=== PATIENT | female | born 1955 | race Caucasian/White ===

== ENCOUNTER → 2017-09-25 07:54 | Outpatient (CLI) | payer OTHER, SELFPAY ==
--- NOTE | 2017-09-25 | DI.MG.S_ITS ---
BILATERAL DIGITAL SCREENING MAMMOGRAM 3D/2D WITH CAD: 09/25/2017 CLINICAL: Routine screening. Comparison is made to exams dated: 07/27/2016 mammogram, 07/25/2015 mammogram, and 07/23/2014 mammogram - [facility]. The tissue of both breasts is heterogeneously dense. This may lower the sensitivity of mammography. Current study was also evaluated with a Computer Aided Detection (CAD) system. No significant masses, calcifications, or other findings are seen in either breast. There has been no significant interval change. IMPRESSION: NEGATIVE There is no mammographic evidence of malignancy. A 1 year screening mammogram is recommended. This exam was interpreted at Station ID: [id number]. NOTE: For mammograms, a report in lay terms will be sent to the patient. Approximately 15% of breast malignancies will not be visualized mammographically. In the management of a palpable breast mass, a negative mammogram must not discourage biopsy of a clinically suspicious lesion. Electronically Signed By: Guillermo maier/rayshawn:09/25/2017 16:40:56 letter sent: Normal Exam ACR BI-RADS Category 1: Negative 3341F
== END ==
PROVIDERS: Family Provider Family Medicine; PCP Family Medicine; Visit Provider Family Medicine
DX: Z12.31 Encounter for screening mammogram for malignant neoplasm of breast (principal)
CPT/HCPCS: 77063; 77067

== ENCOUNTER → 2018-01-08 07:22 | Outpatient (CLI) | payer OTHER, SELFPAY ==
[2018-01-08 07:56] LABS: Add Manual Diff / Slide Review NO; Basophils Percent Auto 0.7 % (0-2); Eosinophils Percent Auto 2.1 % (2-4); Hematocrit 42.7 % (36-46); Hemoglobin 14.3 g/dL (12.0-16.0); Lymphocytes Percent Auto 34.2 % (25-40); Mean Corpuscular HGB Conc 33.4 % (30-36); Mean Corpuscular Hemoglobin 28.5 PG (26-34); Mean Corpuscular Volume 85.3 fL (80-100); Monocytes Percent Auto 8.4 % (3-14); Neutrophils Absolute Auto 3100 /uL (3000-5900); Neutrophils Percent Auto 54.6 % (50-75); Platelet Count 228 X10^3/uL (150-400); Red Cell Distribution Width 13.3 % (11.6-14.8); White Blood Cell Count 5.6 X10^3/uL (4.5-11.0)
[2018-01-08 08:06] LABS: Alanine Aminotransferase 34 IU/L (9-52); Albumin 4.3 g/dL (3.5-5.0); Albumin Globulin Ratio 1.3 (1.0-2.8); Alkaline Phosphatase 88 U/L (38-126); Aspartate Aminotransferase 25 IU/L (14-36); BUN Creatinine Ratio 21.3 (6-22); Bilirubin Total 0.6 mg/dL (0.2-1.3); Blood Urea Nitrogen 17 mg/dL (7-17); Calcium 9.4 mg/dL (8.4-10.2); Carbon Dioxide 26 mmol/L (22-32); Chloride 106 mmol/L (98-107); Cholesterol 216 mg/dL (140-199); Estimated Glomerular Filt Rate > 60.0 mL/min (>60); Globulin 3.2 g/dL (1.7-4.1); Glucose 109 mg/dL (80-110); HDL Cholesterol 42 mg/dL (40-60); HEMOLYSIS < 15 (0-50); LDL Cholesterol Calculated 131 mg/dL (<100); Potassium 4.1 mmol/L (3.4-5.1); Sodium 146 mmol/L (137-145); Total Protein 7.5 g/dL (6.3-8.2); Triglycerides 214 mg/dL (35-150)
== END ==
PROVIDERS: Family Provider Family Medicine; PCP Family Medicine
DX: Z13.228 Encounter for screening for other metabolic disorders (principal); Z13.220 Encounter for screening for lipoid disorders; Z13.0 Encounter for screening for diseases of the blood and blood-forming organs and certain disorders involving the immune mechanism; Z13.29 Encounter for screening for other suspected endocrine disorder
CPT/HCPCS: 36415; 80053; 80061; 84443; 85025

== ENCOUNTER → 2018-06-13 10:38 | Outpatient (CLI) | payer OTHER, SELFPAY ==
--- NOTE | 2018-06-13 | DI.RAD.S_ITS ---
PROCEDURE: XR KNEE LT 1TO2V INDICATIONS: LUMBAR/L KNEE PAIN TECHNIQUE: 2 views of the knee were acquired. COMPARISON: None. FINDINGS: Bones: No fractures or dislocations. No suspicious bony lesions. Scattered degenerative subchondral sclerosis and spurring. Joint spaces are grossly preserved. Prominent spurring of the superior pole of the patella Soft tissues: No joint effusion. No suspicious soft tissue calcifications. IMPRESSION: Mild left knee joint degeneration. Dictated by: Darrel Olsen M.D. on 06/13/2018 at 11:42 Approved by: Darrel Olsen M.D. on 06/13/2018 at 11:44
--- NOTE | 2018-06-13 | DI.RAD.S_ITS ---
PROCEDURE: XR LUMBAR SPINE 2-3V INDICATIONS: LUMBAR/L KNEE PAIN TECHNIQUE: 3 views of the lumbar spine were acquired. COMPARISON: [facility], , L-SPINE 2-3 VIEWS, 11/02/2014, 10:55. FINDINGS: Bones: No fracture or focal osseous destruction. Moderate to severe narrowing of the L3-L4, L4-L5 L5-S1 disc spaces. There is also mild to moderate diffuse narrowing of the remaining lower thoracic and upper lumbar disc spaces. Straightening of the normal lordosis. Bilateral hip degeneration. Prominent right-sided paravertebral osteophyte formation as before the level of L4-L5 Soft tissues: Overlying bowel gas pattern is normal. No suspicious soft tissue calcifications. IMPRESSION: Diffuse thoracic and lumbar spondylosis and facet arthropathy, mild progressed since 11/02/14 (At L4-L5 and L5-S1) Dictated by: Darrel Olsen M.D. on 06/13/2018 at 11:40 Approved by: Darrel Olsen M.D. on 06/13/2018 at 11:42
== END ==
PROVIDERS: Family Provider Family Medicine; PCP Family Medicine; Visit Provider Chiropractor
DX: M54.5 Low back pain (principal); M25.562 Pain in left knee; M17.12 Unilateral primary osteoarthritis, left knee; M47.814 Spondylosis without myelopathy or radiculopathy, thoracic region; M47.816 Spondylosis without myelopathy or radiculopathy, lumbar region
CPT/HCPCS: 72100; 73560

== ENCOUNTER → 2018-11-12 15:10 | Outpatient (CLI) | payer OTHER, SELFPAY ==
--- NOTE | 2018-11-12 | DI.MG.S_ITS ---
BILATERAL DIGITAL SCREENING MAMMOGRAM 3D/2D WITH CAD: 11/12/2018 CLINICAL: Routine screening. Comparison is made to exams dated: 09/25/2017 mammogram, 07/27/2016 mammogram, and 07/25/2015 mammogram - [facility]. The tissue of both breasts is heterogeneously dense. This may lower the sensitivity of mammography. Current study was also evaluated with a Computer Aided Detection (CAD) system. There are benign post operative findings in the right breast. No significant masses, calcifications, or other findings are seen in either breast. There has been no significant interval change. IMPRESSION: There is no mammographic evidence of malignancy. A 1 year screening mammogram is recommended. This exam was interpreted at Station ID: [id number]. NOTE: For mammograms, a report in lay terms will be sent to the patient. Approximately 15% of breast malignancies will not be visualized mammographically. In the management of a palpable breast mass, a negative mammogram must not discourage biopsy of a clinically suspicious lesion. Electronically Signed By: Fredy myers/rayshawn:11/12/2018 18:05:52 letter sent: Normal Exam ACR BI-RADS Category 2: Benign Finding(s) 3342F
== END ==
PROVIDERS: PCP Family Medicine; Visit Provider Family Medicine
DX: Z12.31 Encounter for screening mammogram for malignant neoplasm of breast (principal)
CPT/HCPCS: 77063; 77067

== ENCOUNTER → 2018-12-03 12:34 | Outpatient (CLI) | payer OTHER, SELFPAY ==
[2018-12-03 14:04] LABS: Free T4, Direct Thyroxine 0.79 ng/dL (0.78-2.19)
[2018-12-03 14:18] LABS: Thyroid Stimulating Hormone 3.73 uIU/mL (0.47-4.68)
== END ==
PROVIDERS: PCP Family Medicine; Visit Provider Family Medicine
DX: E03.9 Hypothyroidism, unspecified (principal)
CPT/HCPCS: 36415; 84439; 84443

== ENCOUNTER → 2019-08-14 07:23 | Outpatient (CLI) | payer OTHER, SELFPAY | PROVIDERS: PCP Family Medicine; Referring Provider Family Medicine; Visit Provider Family Medicine | DX: E03.9 Hypothyroidism, unspecified (principal) | CPT/HCPCS: 84443 ==

== ENCOUNTER → 2019-11-23 17:06 | Outpatient (CLI) | payer OTHER, SELFPAY ==
--- NOTE | 2019-11-23 17:08 | DI.MG.S_ITS ---
BILATERAL DIGITAL SCREENING MAMMOGRAM 3D/2D WITH CAD: 11/23/2019 CLINICAL: Routine screening. Comparison is made to exams dated: 11/12/2018 mammogram, 09/25/2017 mammogram, and 07/27/2016 mammogram - [facility]. The tissue of both breasts is heterogeneously dense. This may lower the sensitivity of mammography. Current study was also evaluated with a Computer Aided Detection (CAD) system. There are benign post operative findings in the right breast. No significant masses, calcifications, or other findings are seen in either breast. There has been no significant interval change. IMPRESSION: BENIGN There is no mammographic evidence of malignancy. A 1 year screening mammogram is recommended. This exam was interpreted at Station ID: [id number]. NOTE: For mammograms, a report in lay terms will be sent to the patient. Approximately 15% of breast malignancies will not be visualized mammographically. In the management of a palpable breast mass, a negative mammogram must not discourage biopsy of a clinically suspicious lesion. Electronically Signed By: Michelle cedillo/rayshawn:11/24/2019 08:45:30 letter sent: Normal Exam ACR BI-RADS Category 2: Benign Finding(s) 3342F
== END ==
PROVIDERS: PCP Family Medicine; Referring Provider Family Medicine; Visit Provider Family Medicine
DX: Z12.31 Encounter for screening mammogram for malignant neoplasm of breast (principal)
CPT/HCPCS: 77063; 77067

== ENCOUNTER → 2019-12-31 13:12 | Outpatient (CLI) | payer OTHER, SELFPAY ==
[2019-12-31 15:25] LABS: Add Manual Diff / Slide Review NO; Basophils Absolute Auto 0 /uL (0-100); Basophils Percent Auto 0.5 % (0-2); Eosinophils Absolute Auto 200 /uL (0-450); Eosinophils Percent Auto 2.3 % (2-4); Hematocrit 43.2 % (36-46); Hemoglobin 14.1 g/dL (12.0-16.0); Lymphocytes Absolute Auto 2400 /uL (1100-4500); Lymphocytes Percent Auto 35.2 % (25-40); Mean Corpuscular HGB Conc 32.7 % (30-36); Mean Corpuscular Hemoglobin 28.4 PG (26-34); Monocytes Absolute Auto 500 /uL (0-900); Neutrophils Absolute Auto 3700 /uL (1500-7000); Platelet Count 250 X10^3/uL (150-400); Red Blood Cell Count 4.97 X10^6/uL (4.0-5.2); Red Cell Distribution Width 13.5 % (11.6-14.8); White Blood Cell Count 6.9 X10^3/uL (4.5-11.0)
[2019-12-31 15:44] LABS: Alanine Aminotransferase 18 IU/L (<35); Albumin 4.4 g/dL (3.5-5.0); Albumin Globulin Ratio 1.3 (1.0-2.8); Alkaline Phosphatase 83 U/L (38-126); Aspartate Aminotransferase 26 IU/L (14-36); BUN Creatinine Ratio 22.7 (6-22); Bilirubin Total 0.6 mg/dL (0.2-1.3); Blood Urea Nitrogen 20 mg/dL (7-17); Calcium 9.4 mg/dL (8.4-10.2); Carbon Dioxide 30 mmol/L (22-32); Chloride 104 mmol/L (98-107); Estimated Glomerular Filt Rate > 60.0 mL/min (>60); Globulin 3.5 g/dL (1.7-4.1); Glucose 83 mg/dL (80-110); HEMOLYSIS < 15 (0-50); Potassium 3.8 mmol/L (3.4-5.1); Sodium 140 mmol/L (137-145); Total Protein 7.9 g/dL (6.3-8.2)
[2019-12-31 16:19] LABS: Thyroid Stimulating Hormone 1.57 uIU/mL (0.47-4.68)
== END ==
PROVIDERS: PCP Family Medicine; Referring Provider Internal Medicine Cardiovascular Disease; Visit Provider Internal Medicine Cardiovascular Disease
DX: I48.0 Paroxysmal atrial fibrillation (principal); E03.9 Hypothyroidism, unspecified
CPT/HCPCS: 36415; 80053; 84443; 85025

== ENCOUNTER → 2020-05-03 13:01 | Outpatient (CLI) | payer MEDICARE, SELFPAY ==
[2020-05-03] MEDS: COVID-19 VACC #1, MRNA(MOD) 100 MCG/0.5 ML VIAL IM (13:15)
== END ==
PROVIDERS: PCP Family Medicine; Visit Provider Internal Medicine
DX: Z23 Encounter for immunization (principal)
CPT/HCPCS: 0011A; 91301

== ENCOUNTER → 2020-05-27 15:14 | Outpatient (CLI) | payer MEDICARE, SELFPAY ==
[2020-05-27] MEDS: COVID-19 VACC #2, MRNA(MOD) 100 MCG/0.5 ML VIAL IM (15:21)
== END ==
PROVIDERS: PCP Family Medicine; Visit Provider Internal Medicine
DX: Z23 Encounter for immunization (principal)
CPT/HCPCS: 0012A; 91301

== ENCOUNTER → 2020-06-08 09:17 | Outpatient (CLI) | payer MEDICARE, SELFPAY ==
[2020-06-08 10:19] LABS: COVID19 -Nasal RAPID Negative (Negative)
== END ==
PROVIDERS: PCP Family Medicine; Visit Provider Surgery
DX: Z20.822 Contact with and (suspected) exposure to COVID-19 (principal)
CPT/HCPCS: 87635; C9803

== ENCOUNTER 2020-06-09 07:29 | Day surgery (SDC) | payer MEDICARE, SELFPAY ==
--- NOTE | 2020-06-09 | PATH_ITS ---
[facility] Accession Number: [id number] . 01 Material submitted: . cecum - CECUM POLYP . 02 Diagnosis: Cecal Polyp: Multiple (approximately eight) portions of tubular adenoma. MRV 06/15/2020 1222 Local . 02 Electronically signed: . Odalis Dickinson MD, Pathologist NPI- [id number] . 01 Gross description: . CECUM POLYP: Received in formalin are multiple fragment(s) of clayton, soft tissue measuring 0.1 x 0.1 x 0.1 cm to 0.5 x 0.4 x 0.4 cm submitted entirely in 1 cassette(s) /NHUNG 06/10/2020 2204 Local . 02 Pathologist provided ICD-10: Z12.11, K63.5 . 02 CPT . 499149 Performed at: 01 [facility] [address] [id number] MD Guillermo Han MD Phone: [phone] Performed at: 02 [facility] [address] [address] [place], [place] [id number] MD Siri Hong MD Phone: [phone]
[2020-06-09 07:53] VITALS: BP 116/77; PULSE 71; RESP 16; TEMP 36.6; O2SAT 98; BMI 34.7
[2020-06-09] MEDS: SODIUM CHLORIDE 0.9% 1,000 ML 200 ML IV (07:53)
--- NOTE | 2020-06-09 08:14 | PM.HP.1 ---
History of Present Illness History of Present Illness Date Patient Seen: 06/09/20 Time Patient Seen: 08:14 Chief complaint: SCREENING COLONOSCOPY Narrative: This is a 65-year-old woman with obesity, atrial fibrillation, and anticoagulated on Eliquis. She last took her Eliquis yesterday morning. She had a colonoscopy 13 years ago, which she reports was normal. She denies any new symptoms of melena, hematochezia, or unexplained weight loss. She occasionally has some abdominal pain after eating in the morning, which is associated with diarrhea. She otherwise does not have chronic diarrhea on a daily basis. ROS Thirteen system review is otherwise negative other than as mentioned below and in HPI. PE: GENERAL: Well groomed and cooperative. Obese. Appears stated age. Answers questions promptly and appropriately. Vital signs noted. HENT: Normocephalic, atraumatic. Hearing intact. EYES: Conjunctiva pink, sclera white, no periorbital swelling. CARDIOVASCULAR: Regular rate. No pedal edema. RESPIRATORY: Non-tachypneic, breathing comfortably on room air. GASTROINTESTINAL: Abdomen soft and non-distended GENITALURINARY: No flank tenderness. MUSCULOSKELETAL: Equal tone and mass bilaterally. SKIN: Warm, dry, soft, appropriate color for ethnicity. No other lesions, rashes, or wounds. NEURO: Alert and Oriented X 3. No gross sensory deficits, or cognitive issues. PSYCH: Appropriate affect and mood. Patient History Surgical History Status post cholecystectomy Family & Social History Family History Grandfather Heart disease Grandmother Heart disease Mother Cancer Social History: household members spouse Tobacco & Substance use: Smoking Status Never smoker alcohol intake current alcohol intake frequency a few times a month Substance Use Type does not use Meds Home Medications and Allergies Home Medications Medication Instructions Recorded Confirmed Type Levoxyl 100 mcg tablet 100 mcg PO DAILY #90 tab NS 12/21/19 06/09/20 Rx apixaban 5 mg tablet 5 mg PO BID 03/03/20 06/09/20 History flecainide 50 mg tablet 50 mg PO Q12H 03/03/20 06/09/20 History metoprolol succinate 25 mg 25 mg PO QDAY #0 03/03/20 06/09/20 History tablet,extended release 24 hr phenazopyridine 100 mg tablet 100 mg PO QIDP PRN #15 tab 03/03/20 06/09/20 Rx Vitamin D3 4,000 units PO DAILY 06/09/20 06/09/20 History lactobacillus combination no.4 3,000 mmu cells PO DAILY 06/09/20 06/09/20 History [Probiotic] loratadine [Claritin] 10 mg PO DAILY 06/09/20 06/09/20 History Allergies Allergy/AdvReac Type Severity Reaction Status Date / Time No Known Drug Allergies Allergy Verified 03/03/20 15:07 Exam Vital Signs (past 8 hours): - 06/09/20 07:53 Temperature 97.9 F Pulse Rate 71 Respiratory Rate 16 Blood Pressure 116/77 Pulse Oximetry 98 Oxygen Delivery Method Room Air Oxygen Flow Rate 0 Assessment & Plan Assessment and plan (1) At average risk for colon cancer: Status: Acute (2) Anticoagulated by anticoagulation treatment: Status: Acute (3) Obesity (BMI 30.0-34.9): Status: Acute Assessment & Plan narrative: Risks and benefits of screening colonoscopy and possible polypectomy were discussed with the patient including risk of bleeding, perforation, need for additional procedures, risks of anesthesia. The patient desires to proceed with the colonoscopy procedure. COVID-19 COVID-19 status: Negative Result date/Date tested (Pos, Neg/Pending): 06/08/20 Time Spent With Patient Time with patient: 15-24 minutes Quality VTE Deep Vein Thrombosis/Pulmonary Embolism Present on Admission: No
--- NOTE | 2020-06-09 08:16 | PM.OP.ENDO ---
Operative Date/Time/Diagnoses Date of procedure: 06/09/20 Time of procedure: 08:16 Pre-op diagnosis: Average risk for colon cancer, due for screening colonoscopy Post-op diagnosis: other (Adenomatous appearing polyp in the cecum) Procedure & Clinicians Study performed: Colonoscopy Procedural sedation performed by the endoscopist Polypectomy with hot snare Same procedure as scheduled: Yes Indications: Average risk for colon cancer, due for screening colonoscopy Surgeon: Tiffanie Bradford Procedure Notes SCOAP/Timeout: Performed Procedure in detail: The patient was brought to the room and placed in left lateral decubitus position with all bony prominences padded. A time-out was performed and then the patient was given procedural sedation starting with [] mg of Versed and[1] mcg of fentanyl. An additional 1 mg of Versed and 50 micro g of fentanyl were given during the procedure. Vitals were monitored throughout the procedure and remained stable. Once adequately sedated, the procedure was begun. A rectal exam was performed revealing [no abnormalitie]. The colonoscope was then introduced to the rectum and advanced to the cecum in the usual fashion[]The cecum was identified by the appendiceal orifice, the mucosal tri-fold, and the ileocecal valve. A 2 cm polyp was found in the cecum. It was removed with hot snare with no bleeding seen after removal. The scope was then retracted while rotating side to side and examining each mucosal fold. ] At the conclusion of the procedure retroflexion was performed and[small grade 1-2 internal hemorrhoids without stigmata of bleeding were see]. The scope was then withdrawn from the rectum the procedure was concluded. The patient tolerated the procedure well and was transferred to the PACU in stable condition Scope withdrawal time: 8 Sedation minutes: 20 Findings: polyp Specimen(s): other (Cecal polyp) Complications: none Impression: One moderate-sized adenomatous appearing polyp removed from the see Post-procedure Recommendations: Colonscopy in 5 years (Depending on pathology results) Follow up: as needed Disposition: PACU
[2020-06-09] MEDS: fentaNYL 250 MCG/5 ML INJ IV (08:26)
[2020-06-09] MEDS: MIDAZOLAM 5 MG/5 ML VIAL IV (08:26)
[2020-06-09 08:44] VITALS: BP 129/64; PULSE 62; RESP 18; TEMP 36.6; O2SAT 99
[2020-06-09 08:49] VITALS: BP 92/47; PULSE 62; RESP 19; O2SAT 96
[2020-06-09 08:53] VITALS: BP 91/60; PULSE 60; RESP 18; TEMP 36.6; O2SAT 98
[2020-06-09 08:58] VITALS: BP 101/59; PULSE 62; RESP 14; O2SAT 98
[2020-06-09 09:02] VITALS: BP 98/62; PULSE 61; RESP 15; O2SAT 98
--- NOTE | 2020-06-09 09:05 | SUR.PHASEI ---
Stable pacu stay.
--- NOTE | 2020-06-09 10:02 | SUR.PHASEII ---
Late entry: reported to Ana BOWMAN initially, assumed care back, pt dressed and ready to go, belly soft, no discomfort, steady when up no dizziness. No questions on d/c instructions. Pt left unit in stable condition.
--- NOTE | 2020-06-09 10:07 | SUR.PHASEII ---
Addendum: Verified with Dr. Bradford- pt to resume Jud rubio pt aware.
== END 2020-06-09 09:20 | disposition home or self-care (01) ==
LOC: ENDO 07:30
PROVIDERS: PCP Family Medicine; Referring Provider Family Medicine; Visit Provider Surgery
PROC: 0DJD8ZZ Inspection of Lower Intestinal Tract, Via Natural or Artificial Opening Endoscopic (ICD-10-PCS; CPT 45378; principal; 2020-06-09 08:30)
DX: Z12.11 Encounter for screening for malignant neoplasm of colon (principal); Z79.01 Long term (current) use of anticoagulants; E66.9 Obesity, unspecified; I48.91 Unspecified atrial fibrillation; K64.0 First degree hemorrhoids; D12.0 Benign neoplasm of cecum
CPT/HCPCS: 45380; 99152; J2250; J3010

== ENCOUNTER → 2020-06-11 11:09 | Outpatient (CLI) | payer MEDICARE, SELFPAY ==
--- NOTE | 2020-06-11 11:11 | DI.MRI.S_ITS ---
PROCEDURE: MR ANKLE RT WO CON INDICATIONS: Achilles tendinitis, right leg TECHNIQUE: Noncontrast sagittal T1 spin echo and T2 fast spin echo with fat saturation, axial proton density fast spin echo and T2 fast spin echo with fat saturation, coronal T1 spin echo and T2 fast spin echo with fat saturation through the ankle/hindfoot. COMPARISON: None. FINDINGS: Image quality: Excellent. Bones and joints: No bone marrow contusions or fractures. No hindfoot coalitions. No osteochondral injuries of the talar dome. Well-defined plantar and dorsal calcaneal enthesophytes are seen. Subcortical cyst formation involving posterior calcaneus at distal Achilles tendon insertion is seen. Trace amount of tibiotalar and subtalar joint fluid is noted. Mild soft tissue swelling around ankle joint is seen. Medial structures: The posterior tibialis, flexor digitorum longus, and flexor hallucis longus tendons are intact. The posterior tibial neurovascular bundle appears normal within the tarsal tunnel, without extrinsic mass effect. The deep layer (anterior and posterior tibiotalar ligaments) and superficial layer (tibionavicular, tibiospring, and tibiocalcaneal ligaments) of the deltoid ligament appear normal. The spring ligament components (superomedial calcaneonavicular, medioplantar oblique calcaneonavicular, and inferoplantar longitudinal ligaments) are intact. Lateral structures: The anterior talofibular, calcaneofibular, and posterior talofibular ligaments appear intact. More superiorly, the anterior and posterior tibiofibular ligaments appear intact, as is the intermalleolar ligament. The tibiofibular syndesmosis is normal in width at 2 mm or less. The peroneus longus and brevis tendons demonstrate normal location and morphology. Adjacent bony peroneal tubercle and retrotrochlear prominence are normal in size. The sinus tarsi demonstrates normal fatty signal, without edema, fibrosis, or cyst formation. Visualized sinus tarsi components (cervical ligament, interosseous talocalcaneal ligament, roots of the inferior extensor retinaculum) appear normal. The calcaneonavicular and calcaneocuboid components of the bifurcate ligament appear intact. The dorsal calcaneocuboid ligament appears intact. Anterior structures: The tibialis anterior, extensor hallucis longus, and extensor digitorum longus tendons appear intact. The dorsal talonavicular ligament appears intact. Posterior and plantar structures: Thickened Achilles tendon with heterogeneous intrasubstance T2 hyperintense signal and surrounding soft tissue edema at its insertion of posterior calcaneus is seen. No full-thickness Achilles tendon rupture. Medial and lateral bands of the plantar fascia are of normal thickness. No abductor digiti quinti muscle atrophy to suggest Sharp neuropathy. IMPRESSION: 1. Well-defined plantar and dorsal calcaneal enthesophytes. No fracture or dislocation. Small amount of joint fluid. 2. Tendinosis and low to moderate grade intrasubstance partial-thickness tear involving distal 4.6 centimeters segment of Achilles tendon extending to its insertion of posterior calcaneus. No full-thickness Achilles tendon rupture. Plantar aponeurosis is intact. 3. Mild ankle soft tissue swelling. Extensor, flexor, and peroneus tendons are intact. Medial and lateral ankle ligaments are grossly intact. Dictated by: Damir Horvath M.D. on 06/13/2020 at 8:22 Approved by: Damir Horvath M.D. on 06/13/2020 at 8:26
== END ==
PROVIDERS: PCP Family Medicine; Referring Provider Orthopaedic Surgery Foot and Ankle Surgery; Visit Provider Orthopaedic Surgery Foot and Ankle Surgery
DX: M76.61 Achilles tendinitis, right leg (principal); S86.011A Strain of right Achilles tendon, initial encounter; M77.31 Calcaneal spur, right foot; M79.89 Other specified soft tissue disorders
CPT/HCPCS: 73721

== ENCOUNTER → 2020-10-12 09:43 | Outpatient (CLI) | payer MEDICARE, SELFPAY ==
[2020-10-12 13:01] LABS: COVID19 -Nasal RAPID Negative (Negative)
== END ==
PROVIDERS: PCP Family Medicine; Visit Provider Nurse Practitioner
DX: Z01.812 Encounter for preprocedural laboratory examination (principal); Z20.822 Contact with and (suspected) exposure to COVID-19
CPT/HCPCS: 87635; C9803

== ENCOUNTER 2020-10-14 06:10 | Day surgery (SDC) | payer MEDICARE, SELFPAY ==
[2020-10-13 10:29] VITALS: BMI 34.7
[2020-10-14] MEDS: LACTATED RINGERS 1,000 ML 42 ML IV (06:51)
[2020-10-14 07:00] VITALS: BP 117/74; PULSE 67; RESP 15; TEMP 36.6; O2SAT 98; BMI 34.7
--- NOTE | 2020-10-14 07:34 | PM.PREOP ---
Pre-operative Note COVID-19 COVID-19 status: Negative Interval Note History & Physical reviewed/Exam performed by Physician: Yes Changes to H&P: No
--- NOTE | 2020-10-14 08:04 | P.OP_ITS ---
Operative Date/Time/Diagnoses Date of procedure: 10/14/20 Time of procedure: 08:30 Pre-op diagnosis: Insertional Achilles tendinitis right leg M76.61 BMI 34 adult z 68.34 Gastroc contracture M62.89 Post-op diagnosis: same Procedure & Clinicians Procedure: 1. Repair Achilles tendon secondary right CPT 88557 2. FHL transfer CPT code 99219 3. Rashid excision CPT code code 50112 4. Ronda gastroc recession CPT code 35328 Same procedure as scheduled: Yes Indications: The patient is a 65-year-old female with a history of intractable insertional Achilles tendinitis and tendinopathy. She has failed conservative treatment with stretching shoe modifications activity modifications and anti- inflammatories. She also has a gastroc contracture. She has significant tendinosis on MRI and has been indicated for insertional Achilles tendon repair with Rashid and and the 0 fight resection, flexor hallucis longus transfer and a gastroc recession. The risks and benefits of the procedure have been discussed with the patient even opportunity to ask questions. The risks of surgery include but are not limited to infection, malunion, nonunion, persistence of pain, damage to nerves and blood vessels, posttraumatic arthritis, DVT, PE, cardiopulmonary complications and . The patient expressed a thorough understanding of the risks and benefits of surgery and has elected to proceed. Consent was signed in the office. Surgeon: Shannan Alcantara Click Yes if Unassisted: Yes Anesthesia Type: General and Peripheral nerve block Operative Notes Findings: Examination on the table demonstrated 0? dorsiflexion with the knee extended 15? with the knee bent indicating gastroc contracture. Intraoperative findings included Thickened Achilles tendon at the insertion with intrasubstance tendinosis. Large Enthesophyte and prominent Rashid deformity. Closure Type: primary Specimen(s): none sent Prosthetic devices, grafts, tissues, transplants, or devices: Arthrex SpeedBridge kit for insertional Achilles tendon repair Arthrex 6.25 biotenodesis screw for FHL transfer Estimated Blood Loss (mL): 15 Tourniquet time (min): 76 Procedure in detail: The patient was seen in the preoperative area and the site of surgery was marked, informed consent was confirmed, final questions were answered. The patient was then brought to the block room by the anesthesia team and a regional block was placed for postoperative pain control. Patient was then brought to the operating room. General endotracheal anesthesia was obtained. Tourniquet was placed and well-padded on the upper aspect of the right thigh. Patient was then positioned into the prone position on the operative table. All bony prominences were well padded. An SCD was placed on the non operative leg. The operative leg was then prepped and draped in the standard sterile fashion. A formal time-out procedure was performed confirming the patient, side, site of surgery, allergies and presence of informed consent and administration of appropriate preoperative antibiotics. All were in agreement. Implants were available and in the room. A midline incision over the distal Achilles tendon insertion and heel was drawn. Exsanguination with the Esmarch was performed and then the tourniquet was elevated to 250 mm of mercury and stayed there for 76 minutes. A central midline tendon splitting approach was performed. Full-thickness flaps were developed. The tendon was detached from the calcaneus into medial and lateral limbs and each tendon limb was noted to have moderate fibrosis in the distal 4 cm. The far lateral and medial edges of the tendon were left intact to recreate the footprint. Fibrosis of the tendon was sharply excised with a 15 blade. This did consist of 50% of the bulk of the tendon so it was decided that an FHL transfer would be needed. Rashid excision: There was a large posterior calcaneal enthesophyte and this was shelled out and excised. Additionally the paratenon layer was carefully isolated from the tendon for later repair. Utilizing careful no-touch technique to retract the tendon the Rashid deformity was exposed. This was resected using the saw and then finished with the osteotome under fluoroscopic guidance. The edges were chamfered and smoothed with the power rasp. A retrocalcaneal bursectomy was performed. FHL transfer: Flexor hallux longus was isolated at the medial ankle and id entified with the muscular belly transition into the tendon and with range of motion of the great toe. This was retracted out of the wound and then cut to length. The tendon was then sized to fit through a 6 mm hole therefore a 6.25 bio tenodesis screw was selected. The tendon was prepared with a FiberLoop. The location for the tendon transfer was isolated on the heel and a and drill tip pin was drilled through the calcaneus and out the plantar skin. This was overdrilled with a 4 mm drill bicortically and then with a [address] Tendon was taken through the eyelet of the drill pin and pulled out the bottom of the foot and into the tunnel. Next maintaining appropriate resting tension the FHL transfer was fixed into the calcaneus with the 6.25 bio tenodesis screw. Then attention was returned to the Achilles repair. The Arthrex Speed Bridge system was opened. The 2 proximal 4.75 anchors were placed into the calcaneus approximately 1 cm proximal to the Achilles far distal insertion. The FiberTape limbs were taken out from deep to superficial through the tendon and the additional FiberWire sutures were also brought up through the tendon for additional points of fixation. This same procedure was performed for both the medial and lateral limbs. Once this was completed the FiberWire horizontal mattress style suture was tied down to establish the tendon tension and a spot weld. Following this the site of the distal row swivel locks was determined and approximately 1 cm distal from the proximal row just distal to the tendon insertion. This was marked out on the calcaneus drilled and then tapped in the standard fashion. One blue and 1 white limb from each proximal anchor were threaded through the SwiveLock and fixed distally. This was measured and then marked for tension in the standard fashion placing the peek tip at the hole and marking at the suture according to the black line dg. This reestablished the footprint with excellent compression and tension. The wound was irrigated. 0 Vicryl was used to repair the central tendon split. The repair was noted to have excellent tension and reapproximation without any prominent edges or sutures. Next attention was turned to the gastroc lengthening. Gastroc recession: 4-5 cm incision longitudinal measured about 13-14 cm above the heel was taken down through the skin subcutaneous tissues. The neurovascular bundle was identified and protected. Dissection down through the fascia and to the gastroc fascia was identified. Gastroc soleus junction was identified and the gastroc fascia was released creating a 2 cm diastasis with a dorsiflexion of ankle and allowing improved ankle range of motion. This was then irrigated and closed. The Ricardo test was intact. The wounds were irrigated thoroughly. The tourniquet was released and hemostasis achieved. The fascia and paratenon were closed with 3 0 PDS suture. The skin was closed subcutaneously with 4 0 Monocryl and then 3 O nylon in the skin. A bulky dressing and splint was applied and gravity equinus. A bulky Saini dressing material was used. Patient was woken from anesthesia and taken to recovery room in good condition. There w ere no immediate complications from this procedure. All counts were correct. Complications: none Post-operative Condition: stable Disposition: PACU Plan for aftercare: Nonweightbearing right lower extremity. Elevate above the heart level as much as possible. Dressings will stay in place patient will follow-up in 2 weeks. Sutures remain in place a minimum of 2 weeks but can stay longer if needed. Once the incision is healed well will be moved into a boot with heel left. Discussed if needs additional time healing casting can also be used during that time. She will restart her Eliquis on postoperative day 2
[2020-10-14] MEDS: CEFAZOLIN 1 GM VIAL 2 GM IV (08:19)
--- NOTE | 2020-10-14 08:33 | SUR.OPER ---
Prone on padded OR bed, head in foam head support, gel chest rolls, gel pad under knees, blankets stacked under lower legs, toes free of pressure, arms secured on padded arm boards at <90 degrees abduction. Safety belt at waist.left leg secured to table with tape over calf, right leg draped free
[2020-10-14] MEDS: EPINEPHrine 1 MG/ML SUBCUT (09:00)
--- NOTE | 2020-10-14 09:28 | P.PCN_ITS ---
Procedures Date/Time Date of procedure: 10/14/20 Time of procedure: 07:45 General Procedure description: Ultrasound guided popliteal sciatic nerve block for post op pain control after right Achilles tendon surgery by Dr. Alcantara. Risk and b enefits of procedure discussed with patient. ASA monitoring applied to patient. Oxygen given via nasal cannula. 2 mg Versed given for procedural sedation. Skin site was prepped with chlorhexidine and allowed to fully dry. Sterile gloves, mask, hat and probe cover were used to maintain sterility. 2% lidocaine and 30ga needle was used to make a small skin wheal at needle insertion site. Under ultrasound guidance, a 21ga 100mm Pajunk needle was directed near the division of the sciatic nerve into tibial and peroneal nerve in the popliteal fossa (lateral approach). Patient reported no parasthesias. After negative aspiration, 20 mL 0.5% ropivicaine and 10mg dexamethasone were injected around sciatic nerve. Patient tolerated procedure well.
[2020-10-14 10:28] VITALS: BP 122/66; PULSE 62; RESP 14; TEMP 36.2; O2SAT 97
[2020-10-14 10:33] VITALS: BP 108/65; PULSE 59; RESP 10; TEMP 36.1; O2SAT 97
[2020-10-14 10:38] VITALS: BP 120/38; PULSE 56; RESP 13; TEMP 36; O2SAT 99
[2020-10-14 10:44] VITALS: BP 111/58; PULSE 57; RESP 13; TEMP 36.1; O2SAT 100
[2020-10-14 11:00] VITALS: BP 110/74; PULSE 55; TEMP 36.1; O2SAT 97
== END 2020-10-14 11:25 | disposition home or self-care (01) ==
PROVIDERS: PCP Family Medicine; Referring Provider Orthopaedic Surgery Foot and Ankle Surgery; Visit Provider Orthopaedic Surgery Foot and Ankle Surgery
PROC: (CPT 27650; principal; 2020-10-14 07:45)
DX: M76.61 Achilles tendinitis, right leg (principal); M77.51 Other enthesopathy of right foot and ankle; M62.89 Other specified disorders of muscle; I48.91 Unspecified atrial fibrillation; G47.30 Sleep apnea, unspecified; E66.9 Obesity, unspecified; Z68.34 Body mass index [BMI] 34.0-34.9, adult; Z79.01 Long term (current) use of anticoagulants
CPT/HCPCS: 27654; 27691; 28100; 27687; J0171; J0690; J1100; J1885; J2250; J2405; J2704; J3010

== ENCOUNTER → 2021-01-11 09:04 | Outpatient (CLI) | payer MEDICARE, SELFPAY ==
--- NOTE | 2021-01-11 09:05 | DI.MG.S_ITS ---
BILATERAL DIGITAL SCREENING MAMMOGRAM 3D/2D WITH CAD: 01/11/2021 CLINICAL: Routine screening. Comparison is made to exams dated: 11/23/2019 mammogram, 11/12/2018 mammogram, and 09/25/2017 mammogram - [facility]. The tissue of both breasts is heterogeneously dense. This may lower the sensitivity of mammography. Current study was also evaluated with a Computer Aided Detection (CAD) system. There are benign post operative findings in the right breast. No significant masses, calcifications, or other findings are seen in either breast. There has been no significant interval change. IMPRESSION: BENIGN There is no mammographic evidence of malignancy. A 1 year screening mammogram is recommended. This exam was interpreted at Station ID: [id number]. NOTE: For mammograms, a report in lay terms will be sent to the patient. Approximately 15% of breast malignancies will not be visualized mammographically. In the management of a palpable breast mass, a negative mammogram must not discourage biopsy of a clinically suspicious lesion. Electronically Signed By: Cristiano butler/rayshawn:01/11/2021 10:55:11 letter sent: Normal Exam ACR BI-RADS Category 2: Benign Finding(s) 3342F
== END ==
PROVIDERS: PCP Family Medicine; Referring Provider Family Medicine; Visit Provider Family Medicine
DX: Z12.31 Encounter for screening mammogram for malignant neoplasm of breast (principal)
CPT/HCPCS: 77063; 77067

== ENCOUNTER 2021-02-18 12:31 | Emergency (ER) | payer MEDICARE, SELFPAY ==
[2021-02-18] VITALS (7 sets, daily range): BP systolic 131–154; BP diastolic 60–70; PULSE 56–69; RESP 14–27; TEMP 36.1; O2SAT 96–100; BMI 34.0
--- NOTE | 2021-02-18 12:43 | ED_ITS ---
HPI - Syncope General Chief Complaint: Syncope Stated Complaint: Syncope Time Seen by Provider: 02/18/21 12:43 Source: patient Mode of arrival: Wheelchair Limitations: no limitations History of Present Illness HPI narrative: This is a 65-year-old female who states that she woke up this morning was lying in bed felt fine rolled over and immediately felt like the room was spinning. She states she was nauseated but never vomited. She thought she might have some low blood sugars she ate some food which did help. She continued to have symptoms particularly when she would bend over or move her head. She bent over while getting changed and states she did pass out but had several waves of symptoms overcome her. She states she felt like she might pass out. She denies any headache, no vision changes, no chest pain or shortness of breath. She has had nausea intermittently in her symptoms, in waves it does seem to be related with movement particularly flexion at the neck or her head moving down words. No diarrhea constipation. No urinary symptoms. She has some longstanding right foot tingling and numbness after having an insertional Achilles tendon repair but has not had any new numbness, tingling or weakness. She does have a history of AFib, she checked her Apple watch her heart rate was in the 60s and she was in sinus rhythm according to her watch. She is on Eliquis twice daily, flecainide, metoprolol, Levoxyl and gabapentin. She does know her gabapentin was increased from once daily 300 mg and she has been taking it twice daily for the past 2 days. She has had ablation in 2017, cholecystectomy, Achilles repair, breast biopsy in a 5th metatarsal fracture repair. No allergies. No to bacco, alcohol or illicit. Dr. Cabral is her PCP Related Data Home Medications Medication Instructions Recorded Confirmed apixaban 5 mg tablet (Eliquis) 5 mg PO BID 03/03/20 10/14/20 flecainide 50 mg tablet 50 mg PO Q12H 03/03/20 10/14/20 metoprolol succinate 25 mg 25 mg PO QDAY #0 03/03/20 10/14/20 tablet,extended release 24 hr (Toprol XL) Vitamin D3 4,000 units PO DAILY 06/09/20 10/14/20 lactobacillus combination no.4 3 3,000 mmu cells PO DAILY 06/09/20 10/14/20 billion cell capsule (Probiotic) loratadine 10 mg tablet (Claritin) 10 mg PO DAILY 06/09/20 10/14/20 Previous Rx's Medication Instructions Recorded phenazopyridine 100 mg tablet 100 mg PO QIDP PRN #15 tab 03/03/20 oxycodone 5 mg tablet 5 - 10 mg PO Q4H PRN #42 tab 10/14/20 promethazine 12.5 mg tablet 6.25 mg PO QID PRN #7 tab 10/14/20 Levoxyl 100 mcg tablet 100 mcg PO DAILY #90 tab NS 12/19/20 (levothyroxine) meclizine 25 mg tablet 50 mg PO QID PRN #20 tab 02/18/21 Allergies Allergy/AdvReac Type Severity Reaction Status Date / Time No Known Drug Allergies Allergy Verified 02/18/21 12:47 Review of Systems Review of Systems ROS Unobtainable: All systems reviewed & are unremarkable except as noted in HPI and below Patient History Medical History Achilles tendinitis, right leg Back pain DJD (degenerative joint disease) Surgical History History of cardiac radiofrequency ablation History of open reduction and internal fixation (ORIF) procedure History of surgery Hx of breast biopsy Hx of removal of cyst Status post cholecystectomy Family History Grandfather Heart disease Grandmother Heart disease Mother Cancer Social History marital status: household members: spouse Smoking Status: Never smoker alcohol intake: current substance use type: does not use Smoking Status: Never smoker alcohol intake frequency: a few times a month Substance Use Type: does not use Exam Narrative Exam Narrative: GEN: well nourished, well appearing female, alert and oriented x 3, patient appears to be in mild distress. HEENT: Atraumatic, pupils are equal round reactive to light, extraocular movements are intact, positive for rotatory nystagmus with Lodgepole-Hallpike maneuver on the right, nares are clear, TMs are clear with no fluid, there is no conjunc tival pallor. Throat is clear without any exudates, erythema, tonsillar enlargement or uvular deviation HEART: Regular rate and rhythm without murmur, clicks, rubs. LUNGS:Lungs clear to auscultation, no wheezes, rales, crackles, chest moves symmetrically ABD:bowel sounds normal, soft, non-tender, no guarding, rebound, rigidity, no masses noted, no hepatosplenomegaly :No CVA tenderness MSCL: Non-tender, no muscle atrophy, muscles strength 5/5 upper and lower extremities, full range of motion NEURO:CN 2-12 intact, sensation intact decreased in right foot baseline per patient, finger nose finger test normal, heel tellez test normal Initial Vital Signs Initial Vital Signs: Vital Signs Temperature 97.0 F L 02/18/21 12:43 Pulse Rate 69 02/18/21 12:43 Respiratory Rate 15 02/18/21 12:43 Blood Pressure 154/70 H 02/18/21 12:43 Pulse Oximetry 100 02/18/21 12:43 Scores NIH Stroke Scale Level of Conciousness: Alert, keenly responsive Ask month/age: Answers both questions correctly. Open/close eyes, close hand: Performs both tasks correctly Best gaze horizontal: Normal Visual ambriz: No visual loss Facial palsy: Normal symetrical movement Left arm drift: No drift for full 10 sec Right arm drift: No drift for full 10 sec Left leg drift: No drift for full 5 sec Right leg drift: No drift for full 5 sec Limb ataxia: Absent Sensory on face/arms/legs: Normal, no sensory loss Best language: No aphasia, normal Dysarthria: Normal Extinction or inattention: No abnormality Total NIH Stroke scale score: 0 Course Orders Ordered: Discontinued Medications Meclizine HCl (Meclizine Hcl 12.5 Mg Tablet) 25 mg PO NOW ONE Stop: 02/18/21 13:43 Last Admin: 02/18/21 13:56 Dose: 25 mg Documented by: TRACY Vital Signs Vital signs: Vital Signs - 8 hr 02/18/21 12:43 02/18/21 12:45 02/18/21 13:00 Temperature 97.0 F L Pulse Rate 68 64 63 Respiratory Rate 24 14 24 Blood Pressure 154/70 H 154/70 H Pulse Oximetry 100 99 02/18/21 13:01 02/18/21 13:30 02/18/21 14:00 Temperature Pulse Rate 61 62 58 L Respiratory Rate 21 21 27 H Blood Pressure 147/68 H 151/70 H 141/70 H Pulse Oximetry 99 96 99 02/18/21 14:37 Temperature Pulse Rate 56 L Respiratory Rate 18 Blood Pressure 131/60 Pulse Oximetry 100 MDM - Syncope Lab Data Result diagrams: 02/18/21 13:00 02/18/21 13:00 Labs: Lab Results 02/18/21 02/18/21 02/18/21 Range/Units 13:00 13:00 13:00 WBC 7.1 (4.5-11.0) X10^3/uL RBC 5.04 (4.0-5.2) X10^6/uL Hgb 14.4 (12.0-16.0) g/dL Hct 42.6 (36-46) % MCV 84.6 (80-100) fL MCH 28.7 (26-34) PG MCHC 33.9 (30-36) % RDW 14.2 (11.6-14.8) % Plt Count 241 (150-400) X10^3/uL Neut % (Auto) 64.6 (50-75) % Lymph % (Auto) 24.2 L (25-40) % Edmonson % (Auto) 8.6 (3-14) % Eos % (Auto) 1.9 L (2-4) % Baso % (Auto) 0.7 (0-2) % Neut # (Auto) 4600 (9771-2407) /uL Lymph # (Auto) 1700 (1554-3451) /uL Edmonson # (Auto) 600 (0-900) /uL Eos # (Auto) 100 (0-450) /uL Baso # (Auto) 0 (0-100) /uL PT 15.0 H (10.1-12.7) SECONDS INR 1.3 (0.9-1.3) APTT 42 H (26.4-36.2) SECONDS Sodium 144 (137-145) mmol/L Potassium 4.0 (3.4-5.1) mmol/L Chloride 109 H (98-107) mmol/L Carbon Dioxide 27 (22-32) mmol/L BUN 13 (7-17) mg/dL Creatinine 0.73 (0.52-1.04) mg/dL Estimated GFR > 60.0 (>60) mL/min BUN/Creatinine Ratio 17.8 (6-22) Glucose 107 (80-110) mg/dL Calcium 9.8 (8.4-10.2) mg/dL Magnesium 2.2 (1.6-2.3) mg/dL Total Bilirubin 0.6 (0.2-1.3) mg/dL AST 32 (14-36) IU/L ALT 31 (<35) IU/L Alkaline Phosphatase 92 (38-126) U/L Total Creatine Kinase 21 L (30-135) U/L CK-MB (CK-2) TNP CK-MB (CK-2) Rel Index TNP Troponin I < 0.012 (0.01-0.034) ng/mL NT-Pro-B Natriuret Pep (<125) pg/mL Total Protein 8.4 H (6.3-8.2) g/dL Albumin 4.5 (3.5-5.0) g/dL Globulin 3.9 (1.7-4.1) g/dL Albumin/Globulin Ratio 1.2 (1.0-2.8) Lipase 93 (23-300) U/L SARS-CoV-2 (PCR) (Negative) 02/18/21 02/18/21 Range/Units 13:00 13:35 WBC (4.5-11.0) X10^3/uL RBC (4.0-5.2) X10^6/uL Hgb (12.0-16.0) g/dL Hct (36-46) % MCV (80-100) fL MCH (26-34) PG MCHC (30-36) % RDW (11.6-14.8) % Plt Count (150-400) X10^3/uL Neut % (Auto) (50-75) % Lymph % (Auto) (25-40) % Edmonson % (Auto) (3-14) % Eos % (Auto) (2-4) % Baso % (Auto) (0-2) % Neut # (Auto) (3268-5421) /uL Lymph # (Auto) (4965-7344) /uL Edmonson # (Auto) (0-900) /uL Eos # (Auto) (0-450) /uL Baso # (Auto) (0-100) /uL PT (10.1-12.7) SECONDS INR (0.9-1.3) APTT (26.4-36.2) SECONDS Sodium (137-145) mmol/L Potassium (3.4-5.1) mmol/L Chloride (98-107) mmol/L Carbon Dioxide (22-32) mmol/L BUN (7-17) mg/dL Creatinine (0.52-1.04) mg/dL Estimated GFR (>60) mL/min BUN/Creatinine Ratio (6-22) Glucose (80-110) mg/dL Calcium (8.4-10.2) mg/dL Magnesium (1.6-2.3) mg/dL Total Bilirubin (0.2-1.3) mg/dL AST (14-36) IU/L ALT (<35) IU/L Alkaline Phosphatase (38-126) U/L Total Creatine Kinase (30-135) U/L CK-MB (CK-2) CK-MB (CK-2) Rel Index Troponin I (0.01-0.034) ng/mL NT-Pro-B Natriuret Pep 185 H (<125) pg/mL Total Protein (6.3-8.2) g/dL Albumin (3.5-5.0) g/dL Globulin (1.7-4.1) g/dL Albumin/Globulin Ratio (1.0-2.8) Lipase (23-300) U/L SARS-CoV-2 (PCR) Negative (Negative) Imaging Data Chest x-ray: Radiologist's Impression: [address] [address] XRay Report Signed Patient: Ary Hannah MR#: [id number] : 1955 Acct:[id number] Age/Sex: 65 / F Date of Service: 02/18/21 Loc: ED Accession Number: [id number] ?? Procedure: XR chest 1V Ordering Provider: Acacia Jacobs D.O. PROCEDURE:? XR CHEST 1V ? INDICATIONS:? chest pain ? TECHNIQUE:? One view of the chest was acquired.? ? COMPARISON:? [facility], , CHEST 2 VIEW, 03/02/2015, 11:40. ? FINDINGS:? ? Surgical changes and devices:? Overlying EKG wires. ? Lungs and pleura:? Lungs are clear.? No pleural effusions or pneumothorax.? ? Mediastinum:? Mediastinal contours appear normal.? Heart size is normal.? ? Bones and chest wall:? No suspicious bony lesions.? Degenerative changes of the spine and acromioclavicular joints.? Overlying soft tissues appear unremarkable.? ? IMPRESSION:? ? No evidence of an acute cardiopulmonary abnormality. ? ? Dictated by: Trey Osorio D.O. on 02/18/2021 at 12:01 ? ? Approved by: Trey Osorio D.O. on 02/18/2021 at 12:02?? ECG Data Attestation: I personally reviewed and interpreted this ECG as follows: Prior ECG tracings: not available for review Interpretation: Normal sinus rhythm rate of 61 ME 156 QRS of 98 QTC 465. To inversion with a biphasic P-wave in [address] changes appreciated. MDM Narrative Medical decision making narrative: This is a 65-year-old female with acute onset of vertigo symptoms while lying in bed. Patient does have a history of AFib she is appropriately anticoagulated. She has recently increased her gabapentin but has distinctly vertigo like symptoms. I am able to reproduce it and she has positive Lodgepole-Hallpike maneuver with rotatory nystagmus on exam. Her EKG and labs, chest x-ray are all reassuring. She does had negative neuro exam feel appropriate to treat with meclizine, supportive care and follow-up with ENT if she has persistent symptoms. Discharge Plan Departure Patient Disposition: Home Clinical Impression: Benign paroxysmal positional vertigo Instructions: Benign Paroxysmal Positional Vertigo Activity Restrictions/Additional Instructions: Follow-up with ENT if you have persistent symptoms. You can call for an appointment. You can take meclizine 1-2 tablets every 8 hours as needed for symptoms. You can try Benadryl 1-2 tablets every 6-8 hours for symptoms of meclizine is not helpful. Prescription sent to [facility] in [place]. Please return for severe headaches, new numbness, tingling weakness, passing out, new chest pain or shortness of breath, persistent vomiting, inability to ambulate safely or other new or concerning symptoms. Prescriptions: New meclizine 25 mg tablet 50 mg PO QID PRN (Reason: vertigo) Qty: 20 0RF No Action flecainide 50 mg tablet 50 mg PO Q12H 0RF Eliquis 5 mg tablet 5 mg PO BID 0RF phenazopyridine 100 mg tablet 100 mg PO QIDP PRN (Reason: pain) Qty: 15 0RF metoprolol succinate [Toprol XL] 25 mg tablet extended release 24 hr 25 mg PO QDAY Qty: 0 0RF levothyroxine [Levoxyl] 100 mcg tablet 100 mcg PO DAILY Qty: 90 0RF loratadine [Claritin] 10 mg Tablet 10 mg PO DAILY 0RF Probiotic 3 billion cell Capsule 3,000 mmu cells PO DAILY 0RF Vitamin D3 4,000 units PO DAILY 0RF oxycodone 5 mg tablet 5 - 10 mg PO Q4H PRN (Reason: pain) Qty: 42 0RF Rx Instructions: Postop exempt promethazine 12.5 mg tablet 6.25 mg PO QID PRN (Reason: nausea and vomiting) Qty: 7 0RF Referrals: Willam Cabral MD [Primary Care Provider] - Carlos Coleman MD [Physician] -
--- NOTE | 2021-02-18 12:47 | DI.RAD.S_ITS ---
PROCEDURE: XR CHEST 1V INDICATIONS: chest pain TECHNIQUE: One view of the chest was acquired. COMPARISON: [facility], , CHEST 2 VIEW, 03/02/2015, 11:40. FINDINGS: Surgical changes and devices: Overlying EKG wires. Lungs and pleura: Lungs are clear. No pleural effusions or pneumothorax. Mediastinum: Mediastinal contours appear normal. Heart size is normal. Bones and chest wall: No suspicious bony lesions. Degenerative changes of the spine and acromioclavicular joints. Overlying soft tissues appear unremarkable. IMPRESSION: No evidence of an acute cardiopulmonary abnormality. Dictated by: Trey Osorio D.O. on 02/18/2021 at 12:01 Approved by: Trey Osorio D.O. on 02/18/2021 at 12:02
[2021-02-18 13:11] LABS: Add Manual Diff / Slide Review NO; Basophils Absolute Auto 0 /uL (0-100); Basophils Percent Auto 0.7 % (0-2); Eosinophils Absolute Auto 100 /uL (0-450); Eosinophils Percent Auto 1.9 % (2-4); Hematocrit 42.6 % (36-46); Hemoglobin 14.4 g/dL (12.0-16.0); Lymphocytes Absolute Auto 1700 /uL (1100-4500); Lymphocytes Percent Auto 24.2 % (25-40); Mean Corpuscular HGB Conc 33.9 % (30-36); Mean Corpuscular Hemoglobin 28.7 PG (26-34); Mean Corpuscular Volume 84.6 fL (80-100); Monocytes Absolute Auto 600 /uL (0-900); Monocytes Percent Auto 8.6 % (3-14); Neutrophils Absolute Auto 4600 /uL (1500-7000); Neutrophils Percent Auto 64.6 % (50-75); Platelet Count 241 X10^3/uL (150-400); Red Blood Cell Count 5.04 X10^6/uL (4.0-5.2); Red Cell Distribution Width 14.2 % (11.6-14.8); White Blood Cell Count 7.1 X10^3/uL (4.5-11.0)
[2021-02-18 13:22] LABS: INR 1.3 (0.9-1.3)
[2021-02-18 13:25] LABS: PTT Partial Thromboplastin Tim 42 SECONDS (26.4-36.2)
[2021-02-18 13:26] LABS: Alanine Aminotransferase 31 IU/L (<35); Albumin 4.5 g/dL (3.5-5.0); Albumin Globulin Ratio 1.2 (1.0-2.8); Alkaline Phosphatase 92 U/L (38-126); Aspartate Aminotransferase 32 IU/L (14-36); BUN Creatinine Ratio 17.8 (6-22); Bilirubin Total 0.6 mg/dL (0.2-1.3); Blood Urea Nitrogen 13 mg/dL (7-17); Calcium 9.8 mg/dL (8.4-10.2); Carbon Dioxide 27 mmol/L (22-32); Chloride 109 mmol/L (98-107); Creatine Kinase 21 U/L (30-135); Estimated Glomerular Filt Rate > 60.0 mL/min (>60); Globulin 3.9 g/dL (1.7-4.1); Glucose 107 mg/dL (80-110); HEMOLYSIS < 15 (0-50); Lipase 93 U/L (23-300); Magnesium 2.2 mg/dL (1.6-2.3); Sodium 144 mmol/L (137-145); Total Protein 8.4 g/dL (6.3-8.2)
[2021-02-18 13:31] LABS: COVID19 -Nasal RAPID Negative (Negative)
[2021-02-18 13:38] LABS: Troponin I < 0.012 ng/mL (0.01-0.034)
[2021-02-18 13:52] LABS: NT-proBNP (BNP-Adult 18+) 185 pg/mL (<125)
[2021-02-18] MEDS: MECLIZINE HCL 12.5 MG TABLET 25 MG PO (13:56)
--- NOTE | 2021-02-18 14:37 | PC.NURSE ---
Pt feeling dizzy at rest,worse when she turns her head. Pt denies pain.
== END 2021-02-18 14:37 | disposition home or self-care (01) ==
PROVIDERS: Emergency Provider Emergency Medicine; PCP Family Medicine
DX: H81.10 Benign paroxysmal vertigo, unspecified ear (principal); R03.0 Elevated blood-pressure reading, without diagnosis of hypertension; Z20.822 Contact with and (suspected) exposure to COVID-19; Z86.79 Personal history of other diseases of the circulatory system
CPT/HCPCS: 36415; 71045; 80053; 82550; 83690; 83735; 83880; 84484; 85025; 85610; 85730; 87635; 93005; 93010; 99284; C9803

== ENCOUNTER → 2021-03-09 09:14 | Outpatient (CLI) | payer MEDICARE, SELFPAY ==
[2021-03-09 10:37] LABS: Cholesterol 217 mg/dL (140-199); HDL Cholesterol 47 mg/dL (40-60); LDL Cholesterol Calculated 140 mg/dL (<100); Triglycerides 148 mg/dL (35-150)
[2021-03-09 11:07] LABS: TSH w/ Reflex to FT4 0.75 uIU/mL (0.47-4.68)
== END ==
PROVIDERS: PCP Family Medicine; Referring Provider Family Medicine; Visit Provider Family Medicine
DX: E03.9 Hypothyroidism, unspecified (principal); E78.5 Hyperlipidemia, unspecified; H81.10 Benign paroxysmal vertigo, unspecified ear
CPT/HCPCS: 36415; 80061; 84443

== ENCOUNTER → 2021-05-22 08:34 | Outpatient (CLI) | payer MEDICARE, SELFPAY ==
[2021-05-22 11:25] LABS: BUN Creatinine Ratio 13.8 (6-22); Blood Urea Nitrogen 12 mg/dL (7-17); Calcium 9.1 mg/dL (8.4-10.2); Carbon Dioxide 30 mmol/L (22-32); Chloride 107 mmol/L (98-107); Estimated Glomerular Filt Rate > 60.0 mL/min (>60); Glucose 93 mg/dL (80-110); HEMOLYSIS < 15 (0-50); Potassium 4.2 mmol/L (3.4-5.1); Sodium 143 mmol/L (137-145)
== END ==
PROVIDERS: PCP Family Medicine; Referring Provider Internal Medicine Cardiovascular Disease; Visit Provider Internal Medicine Cardiovascular Disease
DX: I48.0 Paroxysmal atrial fibrillation (principal)
CPT/HCPCS: 36415; 80048

== ENCOUNTER → 2022-01-16 10:14 | Outpatient (CLI) | payer MEDICARE, SELFPAY ==
--- NOTE | 2022-01-16 | DI.MG.S_ITS ---
BILATERAL DIGITAL SCREENING MAMMOGRAM 3D/2D WITH CAD: 01/16/2022 CLINICAL: Routine screening. Comparison is made to exams dated: 01/11/2021 mammogram, 11/23/2019 mammogram, 11/12/2018 mammogram, and 09/25/2017 mammogram - [facility]. Both breasts are heterogeneously dense, which may obscure small masses (category c / 51-75% glandular tissue). Current study was also evaluated with a Computer Aided Detection (CAD) system. There are benign post operative findings in the right breast. No significant masses, calcifications, or other findings are seen in either breast. There has been no significant interval change. IMPRESSION: BENIGN There is no mammographic evidence of malignancy. A 1 year screening mammogram is recommended. Based on the Tyrer Cuzick model (a risk assessment model) the patient's lifetime risk is 10.0% and her 10 year risk is 5.3%. According to the ACR, ACS, and NCCN guidelines, an annual breast MRI exam along with mammogram is recommended if the patient's lifetime risk is 20% or greater. This exam was interpreted at Station ID: [id number]. NOTE: For mammograms, a report in lay terms will be sent to the patient. Approximately 15% of breast malignancies will not be visualized mammographically. In the management of a palpable breast mass, a negative mammogram must not discourage biopsy of a clinically suspicious lesion. Electronically Signed By: Levon fam/rayshawn:01/16/2022 11:06:27 letter sent: Normal Exam ACR BI-RADS Category 2: Benign Finding(s) 3342F
== END ==
PROVIDERS: PCP Family Medicine; Referring Provider Family Medicine; Visit Provider Family Medicine
DX: Z12.31 Encounter for screening mammogram for malignant neoplasm of breast (principal)
CPT/HCPCS: 77063; 77067

== ENCOUNTER → 2022-06-14 07:43 | Outpatient (CLI) | payer MEDICARE, SELFPAY ==
[2022-06-14 08:29] LABS: Add Manual Diff / Slide Review NO; Basophils Absolute Auto 0 /uL (0-100); Basophils Percent Auto 0.7 % (0-2); Eosinophils Absolute Auto 100 /uL (0-450); Eosinophils Percent Auto 1.5 % (2-4); Hematocrit 40.8 % (36-46); Hemoglobin 13.8 g/dL (12.0-16.0); Lymphocytes Absolute Auto 2100 /uL (1100-4500); Mean Corpuscular HGB Conc 33.9 % (30-36); Mean Corpuscular Hemoglobin 28.9 PG (26-34); Mean Corpuscular Volume 85.3 fL (80-100); Monocytes Absolute Auto 500 /uL (0-900); Monocytes Percent Auto 8.9 % (3-14); Neutrophils Absolute Auto 3200 /uL (1500-7000); Neutrophils Percent Auto 53.9 % (50-75); Platelet Count 237 X10^3/uL (150-400); Red Blood Cell Count 4.79 X10^6/uL (4.0-5.2); Red Cell Distribution Width 13.9 % (11.6-14.8); White Blood Cell Count 5.9 X10^3/uL (4.5-11.0)
[2022-06-14 09:09] LABS: Alanine Aminotransferase 22 IU/L (<35); Albumin 3.9 g/dL (3.5-5.0); Albumin Globulin Ratio 1.3 (1.0-2.8); Alkaline Phosphatase 80 U/L (38-126); Aspartate Aminotransferase 20 IU/L (14-36); BUN Creatinine Ratio 18.1 (6-22); Bilirubin Total 0.8 mg/dL (0.2-1.3); Blood Urea Nitrogen 15 mg/dL (7-17); Carbon Dioxide 28 mmol/L (22-32); Chloride 106 mmol/L (98-107); Cholesterol 198 mg/dL (140-199); Estimated Glomerular Filt Rate > 60 mL/min (>60); Globulin 3.1 g/dL (1.7-4.1); Glucose 94 mg/dL (80-110); HDL Cholesterol 42 mg/dL (40-60); HEMOLYSIS < 15 (0-50); LDL Cholesterol Calculated 121 mg/dL (<100); Sodium 140 mmol/L (137-145); Triglycerides 177 mg/dL (35-150)
[2022-06-14 09:38] LABS: TSH w/ Reflex to FT4 0.42 uIU/mL (0.47-4.68)
[2022-06-14 10:21] LABS: Free T4, Direct Thyroxine 1.63 ng/dL (0.78-2.19)
== END ==
PROVIDERS: PCP Family Medicine; Referring Provider Internal Medicine Cardiovascular Disease; Visit Provider Family Medicine
DX: E03.9 Hypothyroidism, unspecified (principal); I48.91 Unspecified atrial fibrillation; I48.0 Paroxysmal atrial fibrillation
CPT/HCPCS: 36415; 80053; 80061; 84439; 84443; 85025

== ENCOUNTER → 2022-07-03 11:20 | Outpatient (CLI) | payer MEDICARE, SELFPAY ==
--- NOTE | 2022-07-03 11:21 | DI.RAD.S_ITS ---
Bone Density Report Name: LUCIO LERMA Age: 67 Sex: Female Ethnicity: White Date of : 1955 Indication: postmenopausal; screening for osteoporosis; Referring Provider: BELEN MORRISSEY Study: Bone densitometry was performed. Exam Date: July 03, 2022 Accession number: [id number] Bone Density: Region BMD T-score Z-score Classification AP Spine(L1, L2, L4) 1.364 3.0 5.0 Normal Femoral Neck (Left) 0.823 -0.2 1.5 Normal Total Hip (Left) 0.979 0.3 1.7 Normal Femoral Neck (Right) 0.858 0.1 1.8 Normal Total Hip (Right) 0.959 0.1 1.5 Normal Total Hip Mean 0.969 0.2 1.6 Normal World Health Organization criteria for BMD impression classify patients as: Normal (T-score at or above -1.0), Osteopenia (T-score between -1.0 and -2.5), or Osteoporosis (T-score at or below -2.5). 10-year Fracture Risk: FRAX not reported because: All T-scores for Spine Total, Hip Total, Femoral Neck at or above -1.0 Impression: The patient has normal bone mass. Discussion: BONE DENSITY IS ABOVE THE MINIMUM DESIRABLE LEVEL AT ALL SKELETAL SITES TESTED. This patient's bone mineral density is above the minimum desirable level (T-score -1.0 or better) at all sites measured. The patient should follow a healthful lifestyle (good nutrition with adequate calcium and vitamin D, and appropriate weight-bearing exercise). Follow-Up: Consider repeating this study in 5 years or sooner if there is some new clinical indication. Reported by: LORNA PORTILLO M.D. on 07/03/2022 11:52:00 AM.
== END ==
PROVIDERS: PCP Family Medicine; Referring Provider Family Medicine; Visit Provider Family Medicine
DX: Z78.0 Asymptomatic menopausal state (principal)
CPT/HCPCS: 77080

== ENCOUNTER → 2022-07-26 07:48 | Outpatient (CLI) | payer MEDICARE, SELFPAY ==
--- NOTE | 2022-07-26 | DI.MRI.S_ITS ---
PROCEDURE: MR LUMBAR SPINE WO CON INDICATIONS: Spinal stenosis, lumbar region TECHNIQUE: Noncontrast sagittal T1 spin echo and T2 fast echo, sagittal STIR, and T2 fast spin echo through the lumbar spine. In cases with scoliosis, additional coronal T2 fast spin echo may be performed. COMPARISON: None. FINDINGS: Image quality: Excellent. Alignment and Curvature: There is normal bony alignment. Bone Marrow: Modic type 1 degenerative endplate changes noted at L2-3. Spinal Cord: Conus medullaris terminates at the L1 level. Visualized cord demonstrates normal signal and size. Paraspinous Soft Tissues: No paravertebral masses. T12-L1: Normal appearance. L1-L2: Disc space narrowing and posterior disc bulge with hypertrophic facet joints results in moderate central stenosis with effacement of the lateral recesses. Mild bilateral foraminal stenosis L2-L3: Disc space narrowing with circumferential disc bulge and hypertrophic facet joints results in moderate central and mild bilateral foraminal stenosis L3-L4: Disc space narrowing and circumferential disc bulge with hypertrophic facet joints results in moderate central stenosis. Moderate left and mild right foraminal stenosis L4-L5: Disc space narrowing with no significant disc bulge. Hypertrophic facet joints present. Mild central stenosis. Mild left and moderate right foraminal stenosis L5-S1: Disc space narrowing without disc bulge present. No central or foraminal stenosis IMPRESSION: Multilevel degenerative disc disease and arthropathy results in varying degrees of central and foraminal stenosis including moderate central stenosis L1-2, L2-3 and L3-4 Approved by: Bertin Rahman M.D. on 07/26/2022 at 13:12
== END ==
PROVIDERS: PCP Family Medicine; Referring Provider Physical Medicine & Rehabilitation Pain Medicine; Visit Provider Physical Medicine & Rehabilitation Pain Medicine
DX: M48.062 Spinal stenosis, lumbar region with neurogenic claudication (principal); M51.36 Other intervertebral disc degeneration, lumbar region; M47.816 Spondylosis without myelopathy or radiculopathy, lumbar region
CPT/HCPCS: 72148

== ENCOUNTER → 2022-10-27 09:14 | Outpatient (CLI) | payer MEDICARE, SELFPAY ==
--- NOTE | 2022-10-27 | DI.MRI.S_ITS ---
PROCEDURE: MR ANKLE RT WO CON INDICATIONS: PERONEAL TENDONITITS RIGHT ANKLE TECHNIQUE: Noncontrast sagittal T1 spin echo and T2 fast spin echo with fat saturation, axial proton density fast spin echo and T2 fast spin echo with fat saturation, coronal T1 spin echo and T2 fast spin echo with fat saturation through the ankle/hindfoot. COMPARISON: [facility], CR, XR ANKLE 1 OR 2 VIEWS WEIGHT BEARING RIGHT, 10/16/2022, 8:26. [facility], MR, MR ANKLE RT WO CON, 06/11/2020, 11:19. FINDINGS: Image quality: Excellent. Bones and joints: No bone marrow contusions or fractures. No hindfoot coalitions. No osteochondral injuries of the talar dome. Mild degenerative spurring of the dorsal aspect of the talonavicular joint. A ganglion cyst is seen lateral to the calcaneocuboid articulation measuring 12 x 3 x 10 mm. Medial structures: The deep and superficial layers of the deltoid ligament appear intact. The spring ligament components are intact. Mild posterior tibialis tenosynovitis. The flexor digitorum longus tendon is intact. Flexor hallucis longus tendon is continuous with a fixation device at the posterior calcaneus. The posterior tibial neurovascular bundle appears normal within the tarsal tunnel, without extrinsic mass effect. Lateral structures: There is attenuation of the anterior talofibular ligament consistent with a remote prior moderate grade sprain. The calcaneofibular ligament and the posterior talofibular ligament appear intact. Remote prior low-grade sprain of the anterior tibiofibular ligament is also noted. The posterior tibiofibular ligament is intact. The peroneus longus and brevis tendons demonstrate normal location and morphology. A ganglion cyst is seen extending superiorly from the lateral sinus tarsi measuring approximately 17 x 11 x 8 mm. Anterior structures: The tibialis anterior, extensor hallucis longus, and extensor digitorum longus tendons appear intact. Posterior and plantar structures: Postsurgical changes are seen from prior callus tendon repair with associated thickening of the distal tendon. The surgical construct is intact. The proximal plantar fascia is mildly thickened without surrounding edema. There is grade 3 fatty infiltration of the abductor osteoarthrosis minimi muscle and mild grade 2 fatty infiltration of the remaining foot muscles that is new when compared to the MRI from 06/11/2020. IMPRESSION: 1. Postsurgical changes from Achilles tendon repair with an intact surgical construct. Postsurgical changes also seen at the extensor hallucis longus tendon inserting onto the posterior calcaneus. 2. Remote prior grade 2 sprain of the anterior talofibular ligament and grade 1 sprain of the anterior tibiofibular ligament. 3. Peroneal tendons appear to be intact. 4. Mild distal posterior tibialis tenosynovitis. 5. Small ganglion cyst at the lateral aspect of the hindfoot adjacent to the calcaneocuboid articulation measuring up to 12 mm. Ganglion cyst also seen extending superiorly from the lateral sinus tarsi measuring up to 17 mm. 6. Mild chronic proximal plantar fasciitis. 7. Fatty infiltration of the intrinsic foot musculature is compatible with chronic denervation changes, progressed when compared to the MRI from 06/11/2020. Approved by: Cristiano Medel M.D. on 10/29/2022 at 10:11
== END ==
PROVIDERS: PCP Family Medicine; Referring Provider Orthopaedic Surgery Foot and Ankle Surgery; Visit Provider Orthopaedic Surgery Foot and Ankle Surgery
DX: S93.491A Sprain of other ligament of right ankle, initial encounter (principal); M65.861 Other synovitis and tenosynovitis, right lower leg; M67.88 Other specified disorders of synovium and tendon, other site; M67.471 Ganglion, right ankle and foot; M72.2 Plantar fascial fibromatosis
CPT/HCPCS: 73721

== ENCOUNTER → 2023-01-17 13:10 | Outpatient (CLI) | payer MEDICARE, SELFPAY ==
--- NOTE | 2023-01-17 | DI.MG.S_ITS ---
BILATERAL DIGITAL SCREENING MAMMOGRAM 3D/2D WITH CAD: 01/17/2023 CLINICAL: Routine screening. Comparison is made to exams dated: 01/11/2021 mammogram, 01/16/2022 mammogram, and 11/23/2019 mammogram - [facility]. Both breasts are heterogeneously dense, which may obscure small masses (category c / 51-75% glandular tissue). Current study was also evaluated with a Computer Aided Detection (CAD) system. There are benign post operative findings in the right breast. No significant masses, calcifications, or other findings are seen in either breast. IMPRESSION: BENIGN There is no mammographic evidence of malignancy. A 1 year screening mammogram is recommended. Based on the Tyrer Cuzick model (a risk assessment model) the patient's lifetime risk is 9.5% and her 10 year risk is 5.3%. According to the ACR, ACS, and NCCN guidelines, an annual breast MRI exam along with mammogram is recommended if the patient's lifetime risk is 20% or greater. This exam was interpreted at Station ID: [id number]. NOTE: For mammograms, a report in lay terms will be sent to the patient. Approximately 15% of breast malignancies will not be visualized mammographically. In the management of a palpable breast mass, a negative mammogram must not discourage biopsy of a clinically suspicious lesion. Electronically Signed By: Love Almonte M.D., PH.D anjum/rayshawn:01/17/2023 23:41:58 letter sent: Normal Exam ACR BI-RADS Category 2: Benign Finding(s) 3342F
== END ==
PROVIDERS: PCP Family Medicine; Referring Provider Family Medicine; Visit Provider Family Medicine
DX: Z12.31 Encounter for screening mammogram for malignant neoplasm of breast (principal)
CPT/HCPCS: 77063; 77067

== ENCOUNTER → 2023-06-27 06:54 | Outpatient (CLI) | payer MEDICARE, SELFPAY ==
[2023-06-27 08:01] LABS: Add Manual Diff / Slide Review NO; Basophils Absolute Auto 0 /uL (0-100); Basophils Percent Auto 0.7 % (0-2); Eosinophils Absolute Auto 100 /uL (0-450); Eosinophils Percent Auto 1.5 % (2-4); Hematocrit 41.1 % (36-46); Hemoglobin 13.8 g/dL (12.0-16.0); Lymphocytes Absolute Auto 1700 /uL (1100-4500); Lymphocytes Percent Auto 31.1 % (25-40); Mean Corpuscular HGB Conc 33.7 % (30-36); Mean Corpuscular Hemoglobin 29.2 PG (26-34); Mean Corpuscular Volume 86.6 fL (80-100); Monocytes Absolute Auto 500 /uL (0-900); Monocytes Percent Auto 8.9 % (3-14); Neutrophils Absolute Auto 3200 /uL (1500-7000); Neutrophils Percent Auto 57.8 % (50-75); Platelet Count 247 X10^3/uL (150-400); Red Blood Cell Count 4.75 X10^6/uL (4.0-5.2); Red Cell Distribution Width 13.7 % (11.6-14.8); White Blood Cell Count 5.6 X10^3/uL (4.5-11.0)
[2023-06-27 20:28] LABS: Alanine Aminotransferase 22 IU/L (<35); Albumin 4.2 g/dL (3.5-5.0); Albumin Globulin Ratio 1.5 (1.0-2.8); Alkaline Phosphatase 81 U/L (38-126); Aspartate Aminotransferase 25 IU/L (14-36); BUN Creatinine Ratio 18.4 (6-22); Bilirubin Total 0.8 mg/dL (0.2-1.3); Blood Urea Nitrogen 16 mg/dL (7-17); Calcium 9.6 mg/dL (8.4-10.2); Carbon Dioxide 27 mmol/L (22-32); Chloride 109 mmol/L (98-107); Cholesterol 195 mg/dL (140-199); Estimated Glomerular Filt Rate > 60 mL/min (>60); Globulin 2.8 g/dL (1.7-4.1); Glucose 89 mg/dL (80-110); HDL Cholesterol 52 mg/dL (40-60); HEMOLYSIS < 15 (0-50); LDL Cholesterol Calculated 111 mg/dL (<100); Potassium 4.7 mmol/L (3.4-5.1); Sodium 143 mmol/L (137-145); Triglycerides 162 mg/dL (35-150)
[2023-06-28 14:06] LABS: TSH w/ Reflex to FT4 0.14 uIU/mL (0.47-4.68)
== END ==
PROVIDERS: PCP Family Medicine; Referring Provider Family Medicine; Visit Provider Family Medicine
DX: I48.91 Unspecified atrial fibrillation (principal); E03.9 Hypothyroidism, unspecified; Z79.899 Other long term (current) drug therapy; E66.9 Obesity, unspecified
CPT/HCPCS: 36415; 80053; 80061; 84439; 84443; 85025

== ENCOUNTER → 2023-08-07 07:33 | Outpatient (CLI) | payer MEDICARE, SELFPAY ==
[2023-08-07 09:29] LABS: Free T4, Direct Thyroxine 1.61 ng/dL (0.78-2.19)
== END ==
LOC: LAB 07:33
PROVIDERS: PCP Family Medicine; Referring Provider Family Medicine; Visit Provider Family Medicine
DX: E03.9 Hypothyroidism, unspecified (principal)
CPT/HCPCS: 36415; 84439; 84443

== ENCOUNTER 2023-09-03 07:35 | Emergency (ER) | payer MEDICARE, SELFPAY ==
[2023-09-03] VITALS (7 sets, daily range): BP systolic 142–171; BP diastolic 73–87; PULSE 67–76; RESP 18; TEMP 36.3; O2SAT 98–100; BMI 30.7
--- NOTE | 2023-09-03 07:49 | EKG_ITS ---
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
[2023-09-03 08:08] LABS: Add Manual Diff / Slide Review NO; Basophils Absolute Auto 0 /uL (0-100); Basophils Percent Auto 0.2 % (0-2); Eosinophils Absolute Auto 0 /uL (0-450); Eosinophils Percent Auto 0.2 % (2-4); Hematocrit 43.9 % (36-46); Hemoglobin 15.1 g/dL (12.0-16.0); Lymphocytes Absolute Auto 1000 /uL (1100-4500); Lymphocytes Percent Auto 9.5 % (25-40); Mean Corpuscular HGB Conc 34.3 % (30-36); Mean Corpuscular Hemoglobin 29.4 PG (26-34); Mean Corpuscular Volume 85.6 fL (80-100); Monocytes Absolute Auto 500 /uL (0-900); Monocytes Percent Auto 4.5 % (3-14); Neutrophils Absolute Auto 9000 /uL (1500-7000); Neutrophils Percent Auto 85.6 % (50-75); Platelet Count 290 X10^3/uL (150-400); Red Blood Cell Count 5.14 X10^6/uL (4.0-5.2); Red Cell Distribution Width 13.6 % (11.6-14.8); White Blood Cell Count 10.5 X10^3/uL (4.5-11.0)
[2023-09-03 08:15] LABS: INR 1.3 (0.9-1.3); Prothrombin Time 14.5 SECONDS (9.4-12.5)
[2023-09-03 08:18] LABS: PTT Partial Thromboplastin Tim 43 SECONDS (25.1-36.5)
[2023-09-03 08:22] LABS: Alanine Aminotransferase 21 IU/L (<35); Albumin 4.4 g/dL (3.5-5.0); Albumin Globulin Ratio 1.2 (1.0-2.8); Alkaline Phosphatase 100 U/L (38-126); Aspartate Aminotransferase 22 IU/L (14-36); BUN Creatinine Ratio 19.1 (6-22); Bilirubin Total 0.8 mg/dL (0.2-1.3); Blood Urea Nitrogen 13 mg/dL (7-17); Calcium 9.9 mg/dL (8.4-10.2); Carbon Dioxide 23 mmol/L (22-32); Chloride 105 mmol/L (98-107); Estimated Glomerular Filt Rate > 60 mL/min (>60); Globulin 3.7 g/dL (1.7-4.1); Glucose 120 mg/dL (80-110); HEMOLYSIS < 15 (0-50); Potassium 3.9 mmol/L (3.4-5.1); Sodium 137 mmol/L (137-145); Total Protein 8.1 g/dL (6.3-8.2)
--- NOTE | 2023-09-03 09:18 | ED_ITS ---
HPI - GI Bleed General Chief complaint: GI Bleed Stated complaint: abd pain, passing blood Time Seen by Provider: 09/03/23 08:57 History of Present Illness HPI Narrative: 68-year-old female with history of atrial fibrillation on Eliquis presents for evaluation of generalized abdominal cramping and bright red bloody stools. Reports ?1 dozen? of grossly bloody bowel movements since last night. This has never happened before. Patient reports colonoscopy in 2020 that had some small polyps, but otherwise was normal. Denies fevers, chills, nausea, vomiting, other complaints at this time. Related Data Home Medications Medication Instructions Recorded Confirmed apixaban 5 mg tablet (Eliquis) 5 mg PO BID 03/03/20 07/24/23 flecainide 50 mg tablet 50 mg PO Q12H 03/03/20 07/24/23 Vitamin D3 4,000 units PO DAILY 06/09/20 07/24/23 lactobacillus combination no.4 3 3,000 mmu cells PO DAILY 06/09/20 07/24/23 billion cell capsule (Probiotic) gabapentin 300 mg capsule 300 mg PO DAILY Nerve pain from 07/02/23 07/24/23 surgery semaglutide 1 mg/dose (4 mg/3 mL) 1 mg SUBCUT QWEEK 07/02/23 07/24/23 subcutaneous pen injector cyclosporine 0.05 % eye drops in a drp EYE-BOTH 07/24/23 07/24/23 dropperette (Restasis) metoprolol succinate 25 mg 12.5 mg PO QDAY #0 tabs 07/24/23 07/24/23 tablet,extended release 24 hr (Toprol XL) Previous Rx's Medication Instructions Recorded phenazopyridine 100 mg tablet 100 mg PO QIDP PRN pain #15 tabs 07/02/23 levothyroxine 88 mcg tablet 88 mcg PO DAILY #90 tabs 08/09/23 (Levoxyl) amoxicillin 875 mg-potassium 1 tab PO Q12H #20 tabs 09/03/23 clavulanate 125 mg tablet hyoscyamine sulfate 0.125 mg tablet 0.125 mg PO BID-QID PRN dyspepsia 09/03/23 #30 tabs tramadol 50 mg tablet 50 mg PO Q8H PRN pain #12 tabs 09/03/23 Allergies Allergy/AdvReac Type Severity Reaction Status Date / Time No Known Drug Allergies Allergy Verified 07/24/23 10:00 Review of Systems Review of Systems Narrative: See HPI Patient History Medical History Foot pain (~2012) Atrial fibrillation (~2015) Achilles tendinitis, right leg Back pain DJD (degenerative joint disease) Surgical History Anesthesia History of Achilles tendon repair (~10/2020) History of cardiac radiofrequency ablation (~05/2016) Hx of breast biopsy History of surgery History of open reduction and internal fixation (ORIF) procedure (~09/2012) Hx of removal of cyst Status post cholecystectomy (~07/1998) Family History Grandfather Heart disease Grandmother Heart disease Mother Cancer Father No problems noted. Brother Stroke Social History marital status: household members: spouse Smoking Status: Never smoker alcohol intake: current substance use type: does not use Smoking Status: Never smoker alcohol intake frequency: a few times a month Substance Use Type: marijuana Exam Initial Vital Signs Initial Vital Signs: Vital Signs Temperature 97.3 F L 09/03/23 07:43 Pulse Rate 76 09/03/23 07:43 Respiratory Rate 18 09/03/23 07:43 Blood Pressure 153/76 H 09/03/23 07:43 Pulse Oximetry 98 09/03/23 07:43 Oxygen Delivery Method Room Air 09/03/23 07:43 Const: Awake, alert, no acute distress, nontoxic appearing Cardiac: regular rate, regular rhythm RESP: unlabored, clear bilaterally, no wheezing GI: Soft, nontender, nondistended, no rebound, no guarding Rectal: Central Office Technician present, tone intact, no gross blood Skin: Warm, Dry, intact, no rashes Neuro: AO x3, CN II-XII grossly intact, moves all extremities Course Orders Ordered: Discontinued Medications Ondansetron HCl (Ondansetron 4 Mg/2 Ml Inj) 4 mg IV NOW PRN PRN Reason: Nausea And Vomiting Ondansetron HCl (Ondansetron 4 Mg Odt) 4 mg SL NOW PRN PRN Reason: Nausea And Vomiting Pantoprazole Sodium (Pantoprazole 40 Mg Vial) 80 mg IV NOW ONE Stop: 09/03/23 07:50 Last Admin: 09/03/23 09:17 Dose: Not Given Documented By: [facility] Vital Signs Vital signs: Vital Signs - 8 hr 09/03/23 07:43 Temperature 97.3 F L Pulse Rate 76 Respiratory Rate 18 Blood Pressure 153/76 H Pulse Oximetry 98 Oxygen Delivery Method Room Air MDM - GI Bleed Differential Diagnosis Differential diagnosis: Likely hemorrhoids, infectious diarrhea and Lower gastrointestinal hemorrhage Lab Data 09/03/23 07:55 09/03/23 07:55 Labs: Lab Results 09/03/23 Range/Units 07:55 WBC 10.5 (4.5-11.0) X10^3/uL RBC 5.14 (4.0-5.2) X10^6/uL Hgb 15.1 (12.0-16.0) g/dL Hct 43.9 (36-46) % MCV 85.6 (80-100) fL MCH 29.4 (26-34) PG MCHC 34.3 (30-36) % RDW 13.6 (11.6-14.8) % Plt Count 290 (150-400) X10^3/uL Neut % (Auto) 85.6 H (50-75) % Lymph % (Auto) 9.5 L (25-40) % Patrick % (Auto) 4.5 (3-14) % Eos % (Auto) 0.2 L (2-4) % Baso % (Auto) 0.2 (0-2) % Neut # (Auto) 9000 H (2344-7364) /uL Lymph # (Auto) 1000 L (9126-1176) /uL Patrick # (Auto) 500 (0-900) /uL Eos # (Auto) 0 (0-450) /uL Baso # (Auto) 0 (0-100) /uL PT 14.5 H (9.4-12.5) SECONDS INR 1.3 (0.9-1.3) APTT 43 H (25.1-36.5) SECONDS Sodium 137 (137-145) mmol/L Potassium 3.9 (3.4-5.1) mmol/L Chloride 105 (98-107) mmol/L Carbon Dioxide 23 (22-32) mmol/L BUN 13 (7-17) mg/dL Creatinine 0.68 (0.52-1.04) mg/dL Estimated GFR > 60 (>60) mL/min BUN/Creatinine Ratio 19.1 (6-22) Glucose 120 H (80-110) mg/dL Calcium 9.9 (8.4-10.2) mg/dL Total Bilirubin 0.8 (0.2-1.3) mg/dL AST 22 (14-36) IU/L ALT 21 (<35) IU/L Alkaline Phosphatase 100 (38-126) U/L Total Protein 8.1 (6.3-8.2) g/dL Albumin 4.4 (3.5-5.0) g/dL Globulin 3.7 (1.7-4.1) g/dL Albumin/Globulin Ratio 1.2 (1.0-2.8) Blood Type O Positive Antibody Screen Negative Imaging Data CT scan - abdomen/pelvis: Radiologist's Impression: PROCEDURE: CT ANGIO ABD/PEL GI BLEED INDICATIONS: LOWER GI BLEED TECHNIQUE: Prior to and following the administration of intravenous contrast, 2.5 mm thick sections acquired from the diaphragm to the symphysis. 10 mm maximum-intensity projection (MIP) reformats were then acquired. For radiation dose reduction, the following was used: automated exposure control. COMPARISON: None. FINDINGS: Image Quality: Diagnostic. Abdominal aorta: No aortic aneurysm or evidence of acute aortic syndrome. Mesenteric arteries: Patent without hemodynamically significant stenosis. Renal arteries: Patent without hemodynamically significant stenosis. No extravasation of contrast material to suggest active hemorrhage. OTHER: Lower Chest: No significant findings. Liver: No solid mass. Diffuse fatty infiltration of the liver. Gallbladder: Gallbladder is surgically absent.. Biliary ducts: No biliary dilation. Pancreas: No ductal dilation. Spleen: Size is within normal limits. Splenic cyst. Adrenal Glands: No adrenal nodules. Kidneys and Ureters: No hydronephrosis. No solid mass. No complex renal cystic lesion which requires follow up. Stomach and Bowel: Circumferential wall thickening with mild adjacent inflammation involving the left colon sigmoid colon and rectum compatible with proctocolitis. The appendix is normal. Peritoneum: No abnormal intraperitoneal fluid. No free air. Ventral Wall: No hernia. Abdominal Nodes: No retroperitoneal or mesenteric adenopathy by size criteria. Vessels: Aorta and inferior vena cava are normal in size. PELVIS: Pelvic Organs: Unremarkable. Bladder: Unremarkable. Pelvic Nodes: No enlarged lymph nodes. Miscellaneous: No inguinal hernias are seen. Bones: No aggressive osseous abnormality. Spine degenerative disc disease and facet arthropathy. IMPRESSION: No active GI hemorrhage identified. Circumferential wall thickening with mild adjacent inflammation involving the left colon, sigmoid colon and rectum consistent with nonspecific proctocolitis. Dictated by: Danielle Barry MD, PhD on 09/03/2023 at 10:19 Approved by: Danielle Barry MD, PhD on 09/03/2023 at 10:25 [facility] Narrative Medical decision making narrative: Well-appearing patient with bright red blood in her stools. Abdomen soft, no obvious gross blood on exam. Patient was however on Eliquis. Reports last colonoscopy less than 3 years ago. Laboratory work and imaging to be obtained. Laboratory work shows WBC count 10.5, hemoglobin 15.1, platelets 290, INR 1.3, sodium 137, potassium 3.9, creatinine 0.68, normal liver enzymes. CT angio of the abdomen and pelvis with contrast shows no extravasation of contrast, there is diffuse thickening of the colon concerning for proctocolitis. Patient has had no bloody bowel movements since arrival to the emergency department. With stable hemoglobin and otherwise benign abdominal exam patient should be stable for discharge home. Patient counseled on her lab and imaging findings, recommended close PCP follow up after colitis is improved to see if repeat colonoscopy is warranted. Antibiotics sent to pharmacy of choice. Pain medications also sent to pharmacy of choice. Discharge Plan Departure Patient Disposition: Home Clinical Impression: Colitis, BRBPR (bright red blood per rectum) Instructions: DI for Colitis Activity Restrictions/Additional Instructions: Your laboratory work today was reassuring. Your hemoglobin today is 15.1, which is normal. Your electrolytes and kidney function are also normal. Your CT scan shows that you have colitis from your rectum to the left side of your colon, which is likely the source of your bleeding. Antibiotics and pain medications has been sent to [facility] [place]. Please finish all of your antibiotics even if you feel improved. Be careful with the pain medication as it may cause constipation. Do not take this medication with alcohol or before driving or operating heavy machinery. Follow up with your primary care doctor after finishing treatment as you may need another colonoscopy. Prescriptions: New amoxicillin-pot clavulanate 875-125 mg tablet 1 tab PO Q12H Qty: 20 0RF tramadol 50 mg tablet 50 mg PO Q8H PRN (Reason: pain) Qty: 12 0RF hyoscyamine sulfate 0.125 mg tablet 0.125 mg PO BID-QID PRN (Reason: dyspepsia) Qty: 30 0RF No Action flecainide 50 mg tablet 50 mg PO Q12H Eliquis 5 mg tablet 5 mg PO BID metoprolol succinate [Toprol XL] 25 mg tablet extended release 24 hr 12.5 mg PO QDAY Qty: 0 levothyroxine [Levoxyl] 88 mcg tablet 88 mcg PO DAILY Qty: 90 1RF cyclosporine [Restasis] 0.05 % dropperette EYE-BOTH Patient Comments: [NO ORIGINAL SIG] semaglutide 1 mg/dose (4 mg/3 mL) pen injector 1 mg SUBCUT QWEEK gabapentin 300 mg capsule 300 mg PO DAILY Patient Comments: Nerve damage was due to anesthetic block for achilles tendonitis repair. phenazopyridine 100 mg tablet 100 mg PO QIDP PRN (Reason: pain) Qty: 15 0RF Probiotic 3 billion cell Capsule 3,000 mmu cells PO DAILY Vitamin D3 4,000 units PO DAILY Referrals: Willam Cabral MD [Primary Care Provider] - Stand Alone Forms: Patient Portal/API
--- NOTE | 2023-09-03 09:19 | CM.MNRNOTE ---
Standby for rectal exam with Dr Verma, trace bright red blood on exam. Patient tolerated well
== END 2023-09-03 10:51 | disposition home or self-care (01) ==
PROVIDERS: Emergency Provider Emergency Medicine; PCP Family Medicine
DX: K52.9 Noninfective gastroenteritis and colitis, unspecified (principal); K62.5 Hemorrhage of anus and rectum; Z79.01 Long term (current) use of anticoagulants
CPT/HCPCS: 36415; 74174; 80053; 85025; 85610; 85730; 86850; 86900; 86901; 93005; 99283; 99284; Q9967

== ENCOUNTER → 2023-09-17 11:07 | Outpatient (CLI) | payer MEDICARE, SELFPAY ==
[2023-09-17 12:20] LABS: Alanine Aminotransferase 16 IU/L (<35); Albumin Globulin Ratio 1.3 (1.0-2.8); Alkaline Phosphatase 74 U/L (38-126); Aspartate Aminotransferase 21 IU/L (14-36); BUN Creatinine Ratio 14.1 (6-22); Bilirubin Total 0.7 mg/dL (0.2-1.3); Blood Urea Nitrogen 10 mg/dL (7-17); C-Reactive Protein Quant 0.8 mg/dL (<1.0); Calcium 9.1 mg/dL (8.4-10.2); Carbon Dioxide 28 mmol/L (22-32); Chloride 108 mmol/L (98-107); Estimated Glomerular Filt Rate > 60 mL/min (>60); Glucose 90 mg/dL (80-110); HEMOLYSIS < 15 (0-50); Potassium 3.7 mmol/L (3.4-5.1); Sodium 141 mmol/L (137-145)
[2023-09-17 12:27] LABS: Erythrocyte Sedimentation Rate 20 MM/HR (0-20)
== END ==
PROVIDERS: PCP Family Medicine; Referring Provider Family Medicine; Visit Provider Family Medicine
DX: K52.9 Noninfective gastroenteritis and colitis, unspecified (principal); Z79.01 Long term (current) use of anticoagulants
CPT/HCPCS: 36415; 80053; 85651; 86140

== ENCOUNTER → 2023-09-18 10:40 | Outpatient (CLI) | payer MEDICARE, SELFPAY ==
[2023-09-18 13:15] LABS: Clostridium Difficile Tox PCR Negative for C. diff (Negative)
== END ==
PROVIDERS: PCP Family Medicine; Referring Provider Family Medicine; Visit Provider Family Medicine
DX: R19.7 Diarrhea, unspecified (principal)
CPT/HCPCS: 83631; 83993; 87493

== ENCOUNTER → 2024-01-21 16:47 | Outpatient (CLI) | payer MEDICARE, SELFPAY ==
--- NOTE | 2024-01-21 16:48 | DI.MG.S_ITS ---
BILATERAL DIGITAL SCREENING MAMMOGRAM 3D/2D WITH CAD: 01/21/2024 CLINICAL: Routine screening. Comparison is made to exams dated: 01/17/2023 mammogram, 01/16/2022 mammogram, and 01/11/2021 mammogram - [facility]. The breasts are heterogeneously dense, which may obscure small masses (category c / 51-75% glandular tissue). Current study was also evaluated with a Computer Aided Detection (CAD) system. There are benign post operative findings in the right breast. No significant masses, calcifications, or other findings are seen in either breast. There has been no significant interval change. IMPRESSION: BENIGN There is no mammographic evidence of malignancy. A 1 year screening mammogram is recommended. Based on the Tyrer Cuzick model (a risk assessment model) the patient's lifetime risk is 9.0% and her 10 year risk is 5.3%. According to the ACR, ACS, and NCCN guidelines, an annual breast MRI exam along with mammogram is recommended if the patient's lifetime risk is 20% or greater. This exam was interpreted at Station ID: [id number]. NOTE: For mammograms, a report in lay terms will be sent to the patient. Approximately 15% of breast malignancies will not be visualized mammographically. In the management of a palpable breast mass, a negative mammogram must not discourage biopsy of a clinically suspicious lesion. Electronically Signed By: Michelle cedillo/rayshawn:01/22/2024 09:21:59 letter sent: Normal Exam ACR BI-RADS Category 2: Benign
== END ==
PROVIDERS: PCP Family Medicine; Referring Provider Family Medicine; Visit Provider Family Medicine
DX: Z12.31 Encounter for screening mammogram for malignant neoplasm of breast (principal); R92.333 Mammographic heterogeneous density, bilateral breasts
CPT/HCPCS: 77063; 77067

== ENCOUNTER → 2024-02-14 08:03 | Outpatient (CLI) | payer OTHER, SELFPAY ==
[2024-02-14 10:11] LABS: TSH w/ Reflex to FT4 0.09 uIU/mL (0.47-4.68)
[2024-02-14 10:37] LABS: Free T4, Direct Thyroxine 1.41 ng/dL (0.78-2.19)
== END ==
PROVIDERS: PCP Family Medicine; Referring Provider Family Medicine; Visit Provider Family Medicine
DX: E03.9 Hypothyroidism, unspecified (principal)
CPT/HCPCS: 36415; 84439; 84443

== ENCOUNTER → 2024-04-16 07:40 | Outpatient (CLI) | payer OTHER, SELFPAY ==
[2024-04-16 09:39] LABS: TSH w/ Reflex to FT4 0.22 uIU/mL (0.47-4.68)
[2024-04-16 10:15] LABS: Free T4, Direct Thyroxine 1.22 ng/dL (0.78-2.19)
== END ==
PROVIDERS: PCP Family Medicine; Referring Provider Family Medicine; Visit Provider Family Medicine
DX: E03.9 Hypothyroidism, unspecified (principal)
CPT/HCPCS: 36415; 84439; 84443

== ENCOUNTER → 2024-07-08 07:17 | Outpatient (CLI) | payer OTHER, SELFPAY ==
[2024-07-08 08:18] LABS: Creatinine Urine Random 161.65 mg/dL
[2024-07-08 08:19] LABS: Add Manual Diff / Slide Review NO; Basophils Absolute Auto 0 /uL (0-100); Basophils Percent Auto 0.4 % (0-2); Eosinophils Absolute Auto 100 /uL (0-450); Eosinophils Percent Auto 1.6 % (2-4); Hematocrit 42.9 % (36-46); Hemoglobin 14.7 g/dL (12.0-16.0); Lymphocytes Absolute Auto 1500 /uL (1100-4500); Lymphocytes Percent Auto 28.9 % (25-40); Mean Corpuscular HGB Conc 34.3 % (30-36); Mean Corpuscular Hemoglobin 30.3 PG (26-34); Mean Corpuscular Volume 88.4 fL (80-100); Monocytes Absolute Auto 400 /uL (0-900); Monocytes Percent Auto 8.4 % (3-14); Neutrophils Absolute Auto 3200 /uL (1500-7000); Neutrophils Percent Auto 60.7 % (50-75); Platelet Count 246 X10^3/uL (150-400); Red Blood Cell Count 4.85 X10^6/uL (4.0-5.2); Red Cell Distribution Width 14.5 % (11.6-14.8); White Blood Cell Count 5.2 X10^3/uL (4.5-11.0)
[2024-07-08 08:25] LABS: Microalbumin Urine Random 0.7 mg/dL (0-1.6)
[2024-07-08 08:50] LABS: Alanine Aminotransferase 23 IU/L (<35); Albumin 4.6 g/dL (3.5-5.0); Albumin Globulin Ratio 1.5 (1.0-2.8); Alkaline Phosphatase 82 U/L (38-126); Aspartate Aminotransferase 27 IU/L (14-36); BUN Creatinine Ratio 20.2 (6-22); Bilirubin Total 1.2 mg/dL (0.2-1.3); Blood Urea Nitrogen 18 mg/dL (7-17); Calcium 9.8 mg/dL (8.4-10.2); Carbon Dioxide 27 mmol/L (22-32); Chloride 104 mmol/L (98-107); Cholesterol 260 mg/dL (140-199); Estimated Glomerular Filt Rate > 60 mL/min (>60); Glucose 88 mg/dL (70-99); HDL Cholesterol 65 mg/dL (40-60); HEMOLYSIS < 15 (0-50); LDL Cholesterol Calculated 171 mg/dL (<100); Potassium 4.2 mmol/L (3.4-5.1); Sodium 140 mmol/L (137-145); Total Protein 7.6 g/dL (6.3-8.2); Triglycerides 121 mg/dL (35-150)
[2024-07-08 09:20] LABS: TSH w/ Reflex to FT4 2.14 uIU/mL (0.47-4.68)
== END ==
PROVIDERS: PCP Family Medicine; Referring Provider Nurse Practitioner Family; Visit Provider Nurse Practitioner Family
DX: I48.0 Paroxysmal atrial fibrillation (principal); E03.9 Hypothyroidism, unspecified; D68.69 Other thrombophilia; K52.9 Noninfective gastroenteritis and colitis, unspecified; I48.91 Unspecified atrial fibrillation
CPT/HCPCS: 36415; 80053; 80061; 82043; 82570; 84443; 85025

== ENCOUNTER 2024-08-08 10:28 | Emergency (ER) | payer OTHER, SELFPAY ==
[2024-08-08] VITALS (33 sets, daily range): BP systolic 96–150; BP diastolic 57–84; PULSE 83–128; RESP 8–24; TEMP 36.6–36.8; O2SAT 93–99; BMI 29.5
--- NOTE | 2024-08-08 10:35 | DI.RAD.S_ITS ---
1PROCEDURE: XR CHEST 1V INDICATIONS: Chest Pain TECHNIQUE: One view of the chest was acquired. COMPARISON: [facility], [place], XR CHEST 1V, 02/18/2021, 12:47. [facility], [place], CHEST 2 VIEW, 03/02/2015, 11:40. FINDINGS AND IMPRESSION: No dense airspace disease or pleural effusion on this single view study. Normal heart size. Degenerative osseous changes . Dictated by: Von Lala M.D. on 08/08/2024 at 10:38 Approved by: Von Lala M.D. on 08/08/2024 at 10:38
--- NOTE | 2024-08-08 10:35 | EKG_ITS ---
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
[2024-08-08 10:56] LABS: Add Manual Diff / Slide Review NO; Basophils Absolute Auto 0 /uL (0-100); Basophils Percent Auto 0.3 % (0-2); Eosinophils Absolute Auto 100 /uL (0-450); Eosinophils Percent Auto 1.1 % (2-4); Hematocrit 46.2 % (36-46); Hemoglobin 15.8 g/dL (12.0-16.0); Lymphocytes Absolute Auto 3300 /uL (1100-4500); Lymphocytes Percent Auto 42.5 % (25-40); Mean Corpuscular HGB Conc 34.2 % (30-36); Mean Corpuscular Hemoglobin 29.9 PG (26-34); Mean Corpuscular Volume 87.6 fL (80-100); Monocytes Absolute Auto 700 /uL (0-900); Monocytes Percent Auto 8.6 % (3-14); Neutrophils Absolute Auto 3700 /uL (1500-7000); Neutrophils Percent Auto 47.5 % (50-75); Platelet Count 282 X10^3/uL (150-400); Red Blood Cell Count 5.27 X10^6/uL (4.0-5.2); Red Cell Distribution Width 13.8 % (11.6-14.8); White Blood Cell Count 7.7 X10^3/uL (4.5-11.0)
[2024-08-08 11:03] LABS: Alanine Aminotransferase 21 IU/L (<35); Albumin 4.7 g/dL (3.5-5.0); Albumin Globulin Ratio 1.3 (1.0-2.8); Alkaline Phosphatase 92 U/L (38-126); Aspartate Aminotransferase 27 IU/L (14-36); BUN Creatinine Ratio 14.6 (6-22); Bilirubin Total 0.9 mg/dL (0.2-1.3); Blood Urea Nitrogen 14 mg/dL (7-17); Calcium 9.9 mg/dL (8.4-10.2); Carbon Dioxide 20 mmol/L (22-32); Chloride 107 mmol/L (98-107); Creatine Kinase 29 U/L (30-135); Estimated Glomerular Filt Rate > 60 mL/min (>60); Globulin 3.6 g/dL (1.7-4.1); Glucose 85 mg/dL (70-99); HEMOLYSIS < 15 (0-50); Lipase 115 U/L (23-300); Potassium 4.2 mmol/L (3.4-5.1); Sodium 139 mmol/L (137-145); Total Protein 8.3 g/dL (6.3-8.2)
[2024-08-08 11:07] LABS: INR 1.7 (0.9-1.3); Prothrombin Time 19.4 SECONDS (9.4-12.5)
[2024-08-08 11:14] LABS: NT-proBNP (BNP-Adult 18+) 1450 pg/mL (<125); Troponin I < 0.012 ng/mL (0.01-0.034)
[2024-08-08 11:19] LABS: PTT Partial Thromboplastin Tim 40 SECONDS (25.1-36.5)
--- NOTE | 2024-08-08 12:05 | ED.ARRPALP ---
HPI - Arrhythmia/Palpitations General Chief Complaint: Arrhythmia/Palpitations Stated Complaint: A-FID GOING TO PASS OUT Time Seen by Provider: 08/08/24 10:30 Mode of arrival: Ambulatory History of Present Illness HPI narrative: 69-year-old woman with a history of paroxysmal atrial fibrillation anticoagulated on apixaban, on flecainide and metoprolol, last night felt herself go into atrial fibrillation. She describes this is a generally uncomfortable but not painful sensation and feels that her heart is rapidly beating. She has had 2 prior ablations at [facility]. She notes she has a new sleep apnea mask and has been having trouble adjusting and there has been a couple of nights where the full facial mask has been on CPAP has turned off she has had multiple apneic episodes and believes this might be the inciting factor for today's episode of atrial fibrillation. She notes that she did take additional dose of flecainide at approximately 10:00 a.m. this morning. She is not complaining of dyspnea, there has been no nausea, vomiting, recent infections or fevers, no abdominal pain Related Data Home Medications ?Medication ?Instructions ?Recorded ?Confirmed apixaban 5 mg tablet (Eliquis) 5 mg PO BID 03/03/20 07/17/24 flecainide 50 mg tablet 50 mg PO Q12H 03/03/20 07/17/24 Vitamin D3 4,000 units PO DAILY 06/09/20 07/17/24 cyclosporine 0.05 % eye drops in a drp EYE-BOTH 07/24/23 07/17/24 dropperette (Restasis) metoprolol succinate 25 mg 12.5 mg PO QDAY #0 tabs 07/24/23 07/17/24 tablet,extended release 24 hr (Toprol XL) Previous Rx's ?Medication ?Instructions ?Recorded phenazopyridine 100 mg tablet 100 mg PO QIDP PRN pain #15 tabs 07/02/23 levothyroxine 75 mcg tablet 75 mcg PO DAILY #90 tabs 04/23/24 tirzepatide (weight loss) 5 mg/0.5 5 mg (0.5 mL) SUBCUT QWEEK #2 mL 07/20/24 mL subcutaneous solution (Zepbound) tirzepatide (weight loss) 7.5 7.5 mg (0.5 mL) SUBCUT QWEEK #2 mL 07/20/24 mg/0.5 mL subcutaneous solution (Zepbound) tirzepatide (weight loss) 2.5 2.5 mg (0.5 mL) SUBCUT QWEEK 4 08/06/24 mg/0.5 mL subcutaneous solution weeks #2 mL (Zepbound) Allergies Allergy/AdvReac Type Severity Reaction Status Date / Time No Known Drug Allergies Allergy Verified 08/08/24 10:39 Review of Systems Review of Systems Narrative: Pertinent positive and negative findings as per HPI Patient History Medical History Other thrombophilia Foot pain (~2012) Atrial fibrillation (~2015) Achilles tendinitis, right leg Back pain DJD (degenerative joint disease) Surgical History Anesthesia History of Achilles tendon repair (~10/2020) History of cardiac radiofrequency ablation (~05/2016) Hx of breast biopsy History of surgery History of open reduction and internal fixation (ORIF) procedure (~09/2012) Hx of removal of cyst Status post cholecystectomy (~07/1998) Family History Grandfather Heart disease Grandmother Heart disease Mother Cancer Father No problems noted. Brother Stroke Social History marital status: household members: spouse Smoking Status: Never smoker alcohol intake: current substance use type: does not use Smoking Status: Never smoker alcohol intake frequency: a few times a month Exam Initial Vital Signs Initial Vital Signs: Vital Signs Temperature 97.9 F 08/08/24 10:35 Pulse Rate 124 H 08/08/24 10:35 Respiratory Rate 16 08/08/24 10:35 Blood Pressure 126/84 08/08/24 10:35 Pulse Oximetry 98 08/08/24 10:35 Oxygen Delivery Method Room Air 08/08/24 10:35 General: Healthy appearing, in no acute distress. Able to give a complete and coherent history. Well-nourished well-developed HEENT: Moist mucous membranes, normal sclera with reactive pupils, Respiratory: Lungs are clear to auscultation, no wheezing no rales no rhonchi. Full and symmetrical air movement Cardiac: Irregular, mild tachycardia no murmurs Abdomen: Soft, nontender, no rebound or guarding, no flank pain Skin: Warm and dry, no rashes Neurologic: Grossly neurologically intact with no obvious asymmetries or abnormalities Extremities: No trauma, no lower extremity edema Psych: Cooperative, appropriate insight and affect Procedures Cardioversion Time of Cardioversion: 16:14 Consent Signed: Yes Indication: Atrial fibrillation Stability: Stable Number of attempts (shocks): 2 Joules used: 200 Cardiac rhythm post-cardioversion: Brief beats of sinus rhythm than rapid return to atrial fibrillation Procedural Sedation Time of procedure: 16:14 Consent signed: Yes Time out performed: Yes Indication: cardioversion ASA Class: II Mallampati Airway Classification: Class II Preparation: security monitor applied, pulse oximeter, capnometry used, supplemental O2 applied, suction/airway equipment at bedside and IV secured IV Propofol dose (mg): 100 (40 mg initial bolus, 20 additional mg. Sleepy but talking, additional 40 mg given prior to 2nd shock) ED Sedation Level: Moderate (Concious) Patient Tolerated Procedure: Well Complications: hypoventilation Interventions: Assist by BVM Course Orders Ordered: ED Orders 08/08/24 10:35 XR chest 1V Stat EKG-12 Lead Stat 08/08/24 10:42 Complete Blood Count AUTO DIFF Stat Comprehensive Metabolic Panel Stat Lipase Stat Magnesium Stat NT-proBNP (BNP-Adult 18+) Stat PTT Partial Thromboplastin Candelario Stat Prothrombin Time INR Stat Troponin & CK Cardiac Panel Stat Discontinued Medications Aspirin (Aspirin 81 Mg Chew Tab) 324 mg PO NOW ONE Stop: 08/08/24 10:36 Last Admin: 08/08/24 10:44 Dose: Not Given Documented By: AMANDA Sodium Chloride (Normal Saline 0.9%) 1,000 mls @ 1,000 mls/hr IV BOLUS ONE Stop: 08/08/24 13:12 Last Infusion: 08/08/24 13:32 Dose: Infused Documented By: Admin: 08/08/24 12:18 Dose: 1,000 mls/hr Documented By: AMANDA Propofol (Propofol 200 Mg/20 Ml Vial) 200 mg IV NOW ONE Stop: 08/08/24 14:40 Last Admin: 08/08/24 15:29 Dose: 100 mg Documented By: AMANDA Vital Signs Vital signs: Vital Signs - 8 hr 08/08/24 10:35 08/08/24 10:38 08/08/24 11:00 Temperature 97.9 F Pulse Rate 124 H 114 H 128 H Respiratory Rate 16 14 Blood Pressure 126/84 Pulse Oximetry 98 97 98 Oxygen Delivery Method Room Air 08/08/24 11:30 08/08/24 11:47 08/08/24 11:47 Temperature Pulse Rate 115 H 115 H Respiratory Rate 19 24 Blood Pressure 120/76 Pulse Oximetry 96 95 Oxygen Delivery Method 08/08/24 11:48 08/08/24 11:48 08/08/24 11:56 Temperature Pulse Rate 107 H 111 H Respiratory Rate 13 16 Blood Pressure 96/65 Pulse Oximetry 96 96 Oxygen Delivery Method 08/08/24 11:56 08/08/24 12:00 08/08/24 12:00 Temperature Pulse Rate 120 H Respiratory Rate 13 Blood Pressure 128/79 117/67 Pulse Oximetry 97 Oxygen Delivery Method 08/08/24 12:30 08/08/24 12:30 08/08/24 13:00 Temperature Pulse Rate 102 H Respiratory Rate 21 Blood Pressure 109/70 113/75 Pulse Oximetry 98 Oxygen Delivery Method 08/08/24 13:00 08/08/24 13:30 08/08/24 13:30 Temperature Pulse Rate 90 109 H Respiratory Rate 12 20 Blood Pressure 121/78 Pulse Oximetry 98 98 Oxygen Delivery Method 08/08/24 14:00 08/08/24 14:00 08/08/24 14:30 Temperature Pulse Rate 96 H 115 H Respiratory Rate 14 Blood Pressure 105/73 Pulse Oximetry 97 97 Oxygen Delivery Method 08/08/24 14:30 08/08/24 14:40 08/08/24 14:40 Temperature Pulse Rate 114 H Respiratory Rate 10 L Blood Pressure 150/80 H 142/79 H Pulse Oximetry 97 Oxygen Delivery Method 08/08/24 14:50 08/08/24 14:52 08/08/24 14:54 Temperature 98.2 F Pulse Rate 120 H 114 H 109 H Respiratory Rate 13 19 24 Blood Pressure 142/79 H Pulse Oximetry 96 98 96 Oxygen Delivery Method 08/08/24 14:55 08/08/24 14:55 08/08/24 14:55 Temperature Pulse Rate 102 H 102 H Respiratory Rate 22 22 Blood Pressure 135/62 135/62 Pulse Oximetry 95 95 Oxygen Delivery Method 08/08/24 14:57 08/08/24 15:00 08/08/24 15:00 Temperature Pulse Rate 116 H 107 H Respiratory Rate 22 19 Blood Pressure 111/61 111/61 Pulse Oximetry 96 96 Oxygen Delivery Method 08/08/24 15:00 08/08/24 15:05 08/08/24 15:05 Temperature Pulse Rate 107 H 100 H Respiratory Rate 12 19 Blood Pressure 112/59 L 112/59 L Pulse Oximetry 93 97 Oxygen Delivery Method 08/08/24 15:05 08/08/24 15:10 08/08/24 15:10 Temperature Pulse Rate 100 H 97 H Respiratory Rate 8 L 12 Blood Pressure 104/68 104/68 Pulse Oximetry 99 99 Oxygen Delivery Method 08/08/24 15:10 08/08/24 15:15 08/08/24 15:18 Temperature Pulse Rate 101 H 88 101 H Respiratory Rate 18 16 20 Blood Pressure 111/62 Pulse Oximetry 97 96 97 Oxygen Delivery Method 08/08/24 15:18 08/08/24 15:20 08/08/24 15:21 Temperature Pulse Rate 105 H Respiratory Rate 19 Blood Pressure 111/62 127/75 127/75 Pulse Oximetry 98 Oxygen Delivery Method 08/08/24 15:21 08/08/24 15:25 08/08/24 15:25 Temperature Pulse Rate 85 107 H 83 Respiratory Rate 22 16 17 Blood Pressure 119/71 Pulse Oximetry 99 96 98 Oxygen Delivery Method 08/08/24 15:25 08/08/24 15:26 08/08/24 15:30 Temperature Pulse Rate 85 96 H Respiratory Rate 16 19 Blood Pressure 119/71 119/71 Pulse Oximetry 97 98 Oxygen Delivery Method 08/08/24 15:31 08/08/24 15:31 08/08/24 15:46 Temperature Pulse Rate 83 90 Respiratory Rate 18 22 Blood Pressure 113/57 L Pulse Oximetry 97 98 Oxygen Delivery Method 08/08/24 15:46 08/08/24 16:00 08/08/24 16:00 Temperature Pulse Rate 89 Respiratory Rate 10 L Blood Pressure 136/79 120/65 Pulse Oximetry 98 Oxygen Delivery Method MDM - Arrhythmia/Palpitations Lab Data 08/08/24 10:42 08/08/24 10:42 Labs: Lab Results 08/08/24 Range/Units 10:42 WBC 7.7 (4.5-11.0) X10^3/uL RBC 5.27 H (4.0-5.2) X10^6/uL Hgb 15.8 (12.0-16.0) g/dL Hct 46.2 H (36-46) % MCV 87.6 (80-100) fL MCH 29.9 (26-34) PG MCHC 34.2 (30-36) % RDW 13.8 (11.6-14.8) % Plt Count 282 (150-400) X10^3/uL Neut % (Auto) 47.5 L (50-75) % Lymph % (Auto) 42.5 H (25-40) % [place] % (Auto) 8.6 (3-14) % Eos % (Auto) 1.1 L (2-4) % Baso % (Auto) 0.3 (0-2) % Neut # (Auto) 3700 (2040-2279) /uL Lymph # (Auto) 3300 (5042-3298) /uL [place] # (Auto) 700 (0-900) /uL Eos # (Auto) 100 (0-450) /uL Baso # (Auto) 0 (0-100) /uL PT 19.4 H (9.4-12.5) SECONDS INR 1.7 H (0.9-1.3) APTT 40 H (25.1-36.5) SECONDS Sodium 139 (137-145) mmol/L Potassium 4.2 (3.4-5.1) mmol/L Chloride 107 (98-107) mmol/L Carbon Dioxide 20 L (22-32) mmol/L BUN 14 (7-17) mg/dL Creatinine 0.96 (0.52-1.04) mg/dL Estimated GFR > 60 (>60) mL/min BUN/Creatinine Ratio 14.6 (6-22) Glucose 85 (70-99) mg/dL Calcium 9.9 (8.4-10.2) mg/dL Magnesium 2.0 (1.6-2.3) mg/dL Total Bilirubin 0.9 (0.2-1.3) mg/dL AST 27 (14-36) IU/L ALT 21 (<35) IU/L Alkaline Phosphatase 92 (38-126) U/L Total Creatine Kinase 29 L (30-135) U/L Troponin I < 0.012 (0.01-0.034) ng/mL NT-Pro-B Natriuret Pep 1450 H (<125) pg/mL Total Protein 8.3 H (6.3-8.2) g/dL Albumin 4.7 (3.5-5.0) g/dL Globulin 3.6 (1.7-4.1) g/dL Albumin/Globulin Ratio 1.3 (1.0-2.8) Lipase 115 (23-300) U/L Point of Care Testing Test Results Not applicable MDM Narrative Medical decision making narrative: CC: Recurrent atrial fibrillation Complicating co-morbidities: Chronic anticoagulation, two cardiac ablation previously, she did take flecainide prior to arrival Data collected from: patient Medical records reviewed: Notes from [facility] reviewed, patient had follow up appointment on August 06 of this month. Notes that she was in AFib last week Saturday through . Flecainide taken on Saturday eventually led to conversion approximately 24 hours later. Recommendations were additional metoprolol as well as flecainide were reviewed with the patient and goal was to have her in AFib for as little time as possible Differential considered: Atrial fibrillation with rapid ventricular response, acute coronary syndrome, acute renal or electrolyte abnormalities Exam documented above, pertinent findings include: Aside from irregular heart rate, exam is benign Lab Test results independently reviewed as above. Pertinent findings: CBC is unremarkable, slight hemoconcentration suspect mild dehydration Chemistries are reassuring with normal renal function Troponin is undetectable BNP is minimally elevated at 1450 Independently reviewed EKG: Atrial fibrillation at a rate of 107. No acute ischemic changes appreciated Imaging studies independently reviewed: Chest x-ray shows no acute heart failure obvious infiltrates or enlarged cardiac silhouette. Consultations: Dr Stewart, cardiology. Reviewed history, notes from 08/06. Recommendation was to cardiovert, increase flecainide to 100 mg b.i.d., contact their office early next week to have another EKG on the higher dose of flecainide. Treatments: Patient took an extra dose of flecainide 20 minutes prior to arrival. She is given 1 L of saline in the emergency department Discussion: 69-year-old woman with paroxysmal atrial fibrillation, currently on flecainide b.i.d. as well as metoprolol. Was in atrial fibrillation much of last week and converted to sinus rhythm with an extra dose of flecainide. Has been in atrial fibrillation now for approximately 12 hours, was feeling somewhat dizzy, comes in for further evaluation. Medical workup is reassuring with no signs of electrolyte or renal abnormalities. Troponins are not elevated. In discussion with Cardiology, I did attempt cardioversion. We used 200 joules, each attempt she would go back into sinus rhythm for a few beats and then returned to atrial fibrillation. Cardioversion attempts aborted after 2 cardioversions with rapid return to AFib. We will ask her to increase her flecainide to 100 mg twice a day. Her cardiology office was message with today's findings and medication changes. 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 At this point there was no indication for additional workup and she is safe for discharge Discharge Plan Departure Patient Disposition: Home Clinical Impression: AF (paroxysmal atrial fibrillation) Instructions: DI for Atrial Fibrillation Activity Restrictions/Additional Instructions: Thank you for coming in today Your blood work was very reassuring, I do not find any electrolyte abnormalities or sign of significant heart injury. We did try cardioverting you out of your atrial fibrillation today. Unfortunately, your conducting system decided at wanted to stay in atrial fibrillation. With each shock there were normal of sinus beats with P waves and then rapidly going back into AFib. It is okay to go home at this time. I do want you to increase your flecainide from 50 mg twice a day to 100 mg twice a day. Please take 100 mg this evening along with your usual medications including your apixaban I did speak with the cardiology office, they are aware of your visit and are failed cardioversion attempts. Please call on Saturday to set up follow up appointment, see if you have gone back into sinus rhythm with the higher dose of the flecainide. You will need an EKG sometimes next week with the higher dose of the flecainide and if that doses to continue you will need a new prescription If you find that you are getting worse or develop any new symptoms, please feel free to return to the emergency department for further evaluation. Prescriptions: No Action flecainide 50 mg tablet 50 mg PO Q12H Eliquis 5 mg tablet 5 mg PO BID metoprolol succinate [Toprol XL] 25 mg tablet extended release 24 hr 12.5 mg PO QDAY Qty: 0 levothyroxine 75 mcg tablet 75 mcg PO DAILY Qty: 90 3RF Zepbound 5 mg/0.5 mL solution 5 mg SUBCUT QWEEK Qty: 2 0RF Zepbound 7.5 mg/0.5 mL solution 7.5 mg SUBCUT QWEEK Qty: 2 0RF Zepbound 2.5 mg/0.5 mL solution 2.5 mg SUBCUT QWEEK 28 Days Qty: 2 0RF cyclosporine [Restasis] 0.05 % dropperette EYE-BOTH Patient Comments: [NO ORIGINAL SIG] phenazopyridine 100 mg tablet 100 mg PO QIDP PRN (Reason: pain) Qty: 15 0RF Vitamin D3 4,000 units PO DAILY Referrals: Willam Cabral MD [Primary Care Provider, Family Practice] Stand Alone Forms: Patient Portal/API
[2024-08-08] MEDS: SODIUM CHLORIDE 0.9% 1,000 ML 1000 ML IV (12:18)
[2024-08-08] MEDS: propofoL 200 MG/20 ML VIAL IV (15:29)
--- NOTE | 2024-08-08 16:19 | PC.NURSE ---
persistent afib (hr range from 80s-120s) post cardioversion. Pt denies any complications with cardioversion
== END 2024-08-08 16:21 | disposition home or self-care (01) ==
PROVIDERS: Emergency Provider Emergency Medicine; PCP Family Medicine
DX: I48.0 Paroxysmal atrial fibrillation (principal); Z79.01 Long term (current) use of anticoagulants
CPT/HCPCS: 71045; 80053; 82550; 83690; 83735; 83880; 84484; 85025; 85610; 85730; 92960; 93005; 93010; 99284; 99285; J2704

== ENCOUNTER → 2024-10-19 07:30 | Outpatient (CLI) | payer OTHER, SELFPAY ==
[2024-10-19 09:03] LABS: Cholesterol 196 mg/dL (140-199); HDL Cholesterol 56 mg/dL (40-60); Triglycerides 146 mg/dL (35-150)
== END ==
PROVIDERS: PCP Family Medicine; Referring Provider Family Medicine; Visit Provider Family Medicine
DX: E03.9 Hypothyroidism, unspecified (principal); I48.91 Unspecified atrial fibrillation; E78.5 Hyperlipidemia, unspecified
CPT/HCPCS: 36415; 80061